=== PATIENT | female | born 1945 | race Caucasian/White ===

== ENCOUNTER 2023-05-25 13:15 | Emergency (ER) | payer OTHER, SELFPAY ==
--- NOTE | ~2023-05-25 | XR_ITS ---
EXAM: XR finger 2nd LT min 2V DATE: 05/25/2023 14:28 HISTORY: INJURY YESTERDAY, BRUISING AND PAIN THROUGHOUT 2ND DIGIT . COMPARISON: None available. FINDINGS: Decreased mineralization. Transversely oriented, nondisplaced fracture of the corner of th e proximal and medial aspect of the left second middle phalange. No lytic or blastic lesion. Mild sca ttered degenerative changes. No erosion or periosteal change. Soft tissues within normal limits. IMPRESSION: Nondisplaced, small avulsion type fracture of the proximal and medial aspect of the left second middle phalange. Reviewed, dictated and finalized at location K. IMPRESSION: Nondisplaced, small avulsion type fracture of the proximal and medi al aspect of the left second middle phalange.
[2023-05-25 13:15] VITALS: BP 140/99; PULSE 98; RESP 18; TEMP 37.4; O2SAT 96
[2023-05-25] MEDS: TETANUS,DIPHTHERIA,AC PERTUSSIS ADULT 0.5 ML (ADACEL) IM (14:24)
--- NOTE | 2023-05-25 14:58 | ED.GENADULT ---
HPI - General Adult General Chief complaint: Extremity Injury, Upper Stated complaint: left hand injury Time Seen by Provider: 05/25/23 13:33 Source: patient and family Mode of arrival: ambulatory Limitations: no limitations History of Present Illness HPI narrative: Patient is a 77-year-old female who was in the emergency room for a left finger injury after the cat pushed a heavy object off the shelf onto her finger. Patient sustained a left finger index finger mid finger small puncture and bruising of the finger. MD complaint: PRODUCTION LINE OPERATOR Onset (ago): minute(s) (30) Location: upper extremity Radiation: non-radiation Severity: mild Severity scale (1-10): 3 Quality: sharp Pain Consistency: constant Relieving factors: none Exacerbating factors: none Associated symptoms: denies other symptoms Treatments prior to arrival: none Related Data Allergies Allergy/AdvReac Type Severity Reaction Status Date / Time No Known Allergies Allergy Verified 05/25/23 13:27 Review of Systems Review of Systems: All systems reviewed & are unremarkable except as noted in HPI and below Constitutional: Constitutional: Reports no additional constitutional complaints Eyes: Eyes: Reports no additional eye complaints ENT: Reports system reviewed and no additional complaints, except as documented Cardiovascular: Cardiovascular: Reports no additional cardiovascular complaints Respiratory: Respiratory: Reports no additional respiratory complaints Gastrointestinal: Gastrointestinal: Reports no additional gastrointestinal complaints Genitourinary: Genitourinary: Reports no additional female genitourinary complaints Musculoskeletal: Musculoskeletal: Reports no additional musculoskeletal complaints Integumentary/Breasts: Skin/Breast: Reports system reviewed and no additional complaints, except as docu Neurologic: Reports system reviewed and no additional complaints, except as documented Psychiatric: Psychiatric: Reports no additional psychiatric complaints Endocrine: Endocrine: Reports no additional endocrine complaints Hematologic/Lymphatic: Hematologic/Lymphatic: Reports no additional hematologic/lymphatic complaints Allergic/Immunologic: Allergic/Immunologic: Reports no additional allergic/immunologic complaints Exam Const: General: healthy appearing and no acute distress Nutritional Appearance: well nourished Orientation/consciousness: patient oriented x3 Limitations: no limitations HENMT: Head: normal to inspection Eyes: Conjunctivae: conjunctivae normal Pupils: Equal, round and reactive pupils present Neck: Neck: normal visual inspection Chest: Chest palpation & inspection: normal inspection of the chest Resp: Effort & Inspection: normal respiratory effort Cardio: Rate: regular rate Rhythm: regular rhythm Heart sounds: no murmurs GI: Inspection: non-distended GI Palp: Yes Soft to palpation, No Tenderness to palpation present (GI) and No Guarding due to palpation present (GI) : General: Yes bladder normal to palpation Back/Spine/Pelvis: Back: no CVA tenderness Skin: General skin exam: normal color Rashes: no rashes Wounds: no wounds Neuro: General: patient oriented x3 Cranial nerves: Yes Nystagmus not present Speech: normal speech Extrem: General: normal to inspection Psych: Mental Status: mental status grossly normal Course Vital Signs Vital signs: Vital Signs Temperature 37.4 C 05/25/23 13:15 Pulse Rate 98 05/25/23 13:15 Respiratory Rate 18 05/25/23 13:15 Blood Pressure 140/99 H 05/25/23 13:15 Pulse Oximetry 96 05/25/23 13:15 Oxygen Delivery Room Air 05/25/23 13:15 Temperature 37.4 C 05/25/23 13:15 Pulse Rate 98 05/25/23 13:15 Respiratory Rate 18 05/25/23 13:15 Blood Pressure 140/99 H 05/25/23 13:15 Pulse Oximetry 96 05/25/23 13:15 Oxygen Delivery Room Air 05/25/23 13:15 Medical Decision Making Vital Signs Vital Signs: Vital Signs Temperatur
[2023-05-25 15:05] VITALS: BP 141/74; PULSE 79; RESP 18; TEMP 36.5; O2SAT 97
== END 2023-05-25 15:08 | disposition home or self-care (01) ==
PROVIDERS: Emergency Provider Emergency Medicine; PCP Physician Assistant
DX: S62.651A Nondisplaced fracture of middle phalanx of left index finger, initial encounter for closed fracture (principal); Z23 Encounter for immunization; W20.8XXA Other cause of strike by thrown, projected or falling object, initial encounter
CPT/HCPCS: 29130; 73140; 90471; 90715; 99284

== ENCOUNTER 2023-11-23 19:33 | Emergency (ER) | payer OTHER, SELFPAY ==
--- NOTE | ~2023-11-23 | XR_ITS ---
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 RESULT: Lines, tubes, and devices: None. Lungs and pleura: 1 times crowding. Right hemidiaphragm elevation. Linear bibasilar atelectasis/scar . Cardiomediastinal silhouette: Unremarkable. Other: No acute osseous or upper abdominal finding. IMPRESSION: No acute cardiopulmonary process. Reviewed, dictated and finalized at location K. TABLE OPERATOR
[2023-11-23 19:33] VITALS: BP 144/87; PULSE 98; RESP 18; TEMP 36.8; O2SAT 97
[2023-11-23] MEDS: predniSONE 40 MG, predniSONE 10 MG 50 MG PO (19:51)
[2023-11-23] MEDS: AZITHROMYCIN 250 MG TABLET 500 MG PO (19:51)
[2023-11-23 19:55] LABS: Basophils Absolute Auto 0.05 K/mm3 (0.00-0.10); Basophils Percent Auto 0.8 % (0.0-1.0); Eosinophils Absolute Auto 0.13 K/mm3 (0.02-0.50); Hemoglobin 14.6 g/dL (11.7-13.8); Immature Granulocyte Absolute 0.03 K/mm3 (0.00-0.00); Immature Granulocyte Percent A 0.5 % (0.0-0.0); Lymphocytes Absolute Auto 2.35 K/mm3 (1.10-4.50); Lymphocytes Percent Auto 36.7 % (18.0-42.0); Mean Corpuscular HGB Conc 35.6 g/dL (32.0-36.0); Mean Corpuscular Hemoglobin 31.7 pg (27.0-31.0); Mean Corpuscular Volume 88.9 fL (78.0-102.0); Monocytes Absolute Auto 0.44 K/mm3 (0.10-0.90); Monocytes Percent Auto 6.9 % (2.0-11.0); Neutrophils Absolute Auto 3.4 K/mm3 (1.7-7.2); Neutrophils Percent Auto 53.1 % (50.0-70.0); Platelet Count Result 192 K/mm3 (150-420); Red Blood Count 4.61 M/mm3 (4.20-5.40); Red Cell Distribution Width 12.4 % (11.6-14.4); White Blood Count 6.4 K/mm3 (4.8-10.8)
[2023-11-23] MEDS: IPRATROPIUM 0.5 MG/ALBUTEROL SULFATE 2.5 MG AMPUL.NEB 3 ML INHALATION (19:59)
[2023-11-23 20:02] VITALS: PULSE 94; RESP 18; O2SAT 95
[2023-11-23 20:06] VITALS: PULSE 88; RESP 20; O2SAT 94
[2023-11-23 20:12] LABS: Alanine Aminotransferase 23 U/L (14-59); Albumin Level 3.7 g/dL (3.4-5.0); Alkaline Phosphatase 94 U/L (46-116); Anion Gap 10 mmol/L (8-16); Aspartate Amino Transferase 13 U/L (15-37); Bilirubin,Total 0.8 mg/dL (0.00-1.00); Blood Urea Nitrogen 19 mg/dL (7-18); Calcium 10.3 mg/dL (8.5-10.1); Carbon Dioxide 26 mmol/L (21-32); Chloride 100 mmol/L (98-108); Estimated CRCL calculation 44 ml/min; Estimated Glomerular Filt Rate 51; Glucose 260 mg/dL (70-99); Osmolality Calculated 293 mOsm/kg (285-295); Potassium 3.9 mmol/L (3.5-5.1); Sodium 136 mmol/L (136-145); Total Protein 7.3 g/dL (6.4-8.2)
--- NOTE | 2023-11-23 20:19 | ED.GENADULT ---
HPI - General Adult General Chief complaint: Upper Respiratory Infection Stated complaint: cough Time Seen by Provider: 11/23/23 19:37 History of Present Illness HPI narrative: Tracy is a 78F witha PMH of second hand tobacco exposure and diabetes presented to the ED with 2 days of frequent cough. There is no chest pain, fevers, dyspnea, N/V or diarrhea. She has not taken any OTC meds for this. Related Data Allergies Allergy/AdvReac Type Severity Reaction Status Date / Time No Known Allergies Allergy Verified 11/23/23 19:36 Review of Systems Review of Systems: All systems reviewed & are unremarkable except as noted in HPI and below Exam Const: General: cooperative, healthy appearing, comfortable, no acute distress, well developed, alert, awake and Physically active Orientation/consciousness: oriented to person, oriented to place and oriented to time HENMT: Head: normal to inspection, normocephalic and atraumatic Ears: hearing grossly normal bilaterally and external ears normal Face/Nose/Sinus: Normal external nose present Eyes: General: appearance normal, both eyes and all related structures Periorbital: periorbital findings normal Sclera: sclerae normal Pupils: Equal, round and reactive pupils present Neck: Neck: normal visual inspection Chest: Chest palpation & inspection: normal inspection of the chest Resp: Effort & Inspection: normal respiratory effort, able to speak in complete sentences and no respiratory distress Other: Scant wheezing in all lung cardenas but good air movement. Frequent cough on exam. Cardio: Jugular venous distension: no JVD Rate: regular rate Rhythm: regular rhythm GI: Inspection: normal to inspection GI Palp: Yes Soft to palpation Auscultation: normal bowel sounds Skin: General skin exam: normal color and no rashes or lesions noted Neuro: General: oriented to person, oriented to place and oriented to time Cranial nerves: Yes Equal, round and reactive pupils present Extrem: General: normal to inspection Course Course Emergency Course: Ordered CXR, labs and a breathing treatment EXAMINATION:? XR chest 1V portable Exam Date/Time:? 11/23/2023 20:05 [employer] SCOUT HISTORY: cough ? Comparison:? None. RESULT: Lines, tubes, and devices:? None. Lungs and pleura:? 1 times crowding. Right hemidiaphragm elevation. Linear bibasilar atelectasis/scar. Cardiomediastinal silhouette:? Unremarkable. Other:? No acute osseous or upper abdominal finding. IMPRESSION: No acute cardiopulmonary process. Labs were largely unremarkable other than an elevated glucose and slightly elevated Cr. Given her wheezing and tobacco exposure I am concerned for COPD with an exacerbation Vital Signs Vital signs: Vital Signs Temperature 98.3 F 11/23/23 19:33 Pulse Rate 98 11/23/23 19:33 Respiratory Rate 18 11/23/23 19:33 Blood Pressure 144/87 H 11/23/23 19:33 Pulse Oximetry 97 11/23/23 19:33 Oxygen Delivery Room Air 11/23/23 19:33 Temperature 98.6 F 11/23/23 21:21 Pulse Rate 86 11/23/23 21:21 Respiratory Rate 18 11/23/23 21:21 Blood Pressure 123/78 11/23/23 21:21 Pulse Oximetry 96 11/23/23 21:21 Oxygen Delivery Room Air 11/23/23 21:21 Medical Decision Making Vital Signs Vital Signs: Vital Signs Temperature 98.3 F 11/23/23 19:33 Pulse Rate 98 11/23/23 19:33 Respiratory Rate 18 11/23/23 19:33 Blood Pressure 144/87 H 11/23/23 19:33 Pulse Oximetry 97 11/23/23 19:33 Oxygen Delivery Room Air 11/23/23 19:33 Temperature 98.6 F 11/23/23 21:21 Pulse Rate 86 11/23/23 21:21 Respiratory Rate 18 11/23/23 21:21 Blood Pressure 123/78 11/23/23 21:21 Pulse Oximetry 96 11/23/23 21:21 Oxygen Delivery Room Air 11/23/23 21:21 Lab Data 11/23/23 19:42 11/23/23 19:42 Labs: Lab Results 11/23/23 11/23/23 Range/Units 19:42 20:21 WBC 6.4 (4.8-10.8) K/mm3 RBC 4.61 (4.20-5.40) M/mm3
--- NOTE | 2023-11-23 20:59 | PC.NURSE ---
PT IS SITTING ON STRETCHER IN EXAM ROOM. PT DENIES ANY NEEDS OR COMPLAINTS. PT'S FAMILY IS IN WAITING AREA AND HAS BEEN UPDATED. NAD NOTED. WILL CONTINUE TO MONITOR. PT IS WAITING ON RESULTS AT THIS TIME.
[2023-11-23 21:21] VITALS: BP 123/78; PULSE 86; RESP 18; TEMP 37; O2SAT 96
[2023-11-23 21:26] LABS: SARS-CoV-2 RNA PCR Negative (Negative)
[2023-11-23 21:32] LABS: Influenza A QL RT-PCR Negative (Negative); Influenza B QL RT-PCR Negative (Negative); RSV RNA, RT-PCR Negative (Negative)
== END 2023-11-23 21:21 | disposition home or self-care (01) ==
PROVIDERS: Emergency Provider Family Medicine; PCP Physician Assistant
DX: J44.1 Chronic obstructive pulmonary disease with (acute) exacerbation (principal); Z20.822 Contact with and (suspected) exposure to COVID-19
CPT/HCPCS: 36415; 71045; 80053; 85025; 87637; 94640; 99283; A9270; J7512

== ENCOUNTER 2025-01-04 22:44 | Emergency (ER) | payer OTHER, SELFPAY ==
--- NOTE | ~2025-01-04 | XR_ITS ---
Portable chest x-ray Comparison: 11/23/2023 Clinical History: Cough Findings: Mild haziness at the left lung base. Right lung clear. Cardiomediastinal silhouette is st able. Bones and soft tissues are unremarkable. Impression: Left basilar atelectasis versus pneumonia. Correlate with. Reviewed, dictated and finalized at [facility]. Impression: Left basilar atelectasis versus pneumonia. Correlate with.
--- OUTSIDE RECORDS SUMMARY | 2025-01-04 22:46 | XMS_ITS | Encounter Summary ---
Author Organization [facility] Address [address] [place] [address] Phone Care Team Providers Care Chief Enterprise Architect Name Role Phone Ivan Sandra PAC Primary Care Provider [phone] Rachelle Butcher MD Unavailable Encounter Details Date Type Department Care Team (Late st Contact Info) Description 12/21/2024 Telephone [facility] [address] [place] [address] Ivan Sandra, PAC [address] [place] [address] Social History Tobacco Use Types Packs/Day Years Used Date Smoking Tobacco: Former Smokeless Tobacco: Never Alcohol Use Standard Drinks/Week Comments Never 0 (1 standard drink = 0.6 oz pur e alcohol) AUDIT-C Answer Date Recorded Q1: How often do you have a drink containing alc ohol? Never 10/19/2020 Average Number of Drinks Not on file 020 Frequency of Binge Drinking Not on file 09/28 Sexually Active Control Partners Comments Not Currently Comments No Sex and Gender Information Value Date Recorded Sex Assigned at Not on file Legal Sex Female 3:14 PM CDT Gender Identity Not on file Sexual Orientation Not on file documented as of this encounter Miscellaneous Notes * Telephone Encounter - RisaRonaldirving Woodruff - 12/21/2024 3:00 PM CST Patient calling about diapers that were supposed to be ordered and info faxed to [employer]. I didn't realize the office wasn't on of our offices we take calls for. So I called patient and her daughter back to give them the # to the [facility] without an answer. If patient of daughter Radha calls back, they need to call [facility] @ [phone] R NURSE documented in this encounter Plan of Treatment Upcoming Encounters Date Type Department Care Team (Late st Contact Info) Description 06/03/2025 1:00 PM CDT Office Visit [facility] - Endocrinology - [place] [address] [place] [address] Rachelle Butcher MD [address] [phone] documented as of this encounter Visit Diagnoses Not on filedocumented in this encounter Care Teams Chief Enterprise Architect Relationship Specialty Start Date End Date Ivan Sandra, [facility] [address] [place] [id number] PCP - General Physician Blood Tester 07/28/20 Rachelle Butcher MD [address] [id number] Consulting Physician Endocrinology 11/15/20 documented as of this encounter
--- OUTSIDE RECORDS SUMMARY | 2025-01-04 22:46 | XMS_ITS | Data Portability ---
Author [facility] [address] [place] [address] Care Team Providers Care Station Engineer Name Role Phone WEI SANDRA Primary Care Provider Assessment No assessment recorded. Plan of Treatment Reminders Order Date Submit Date Provider Last Modified By Organization Details Last Modified Time Details Appointments None recorded. Lab HbA1c (hemoglobi n A1c), blood 2024 025 MAEGAN In-Office Order, Internal Use Only DO Not Attach Compendium DO Not Attach Compendium, Do Not Delete/merge, [id number] 5 16:18:21 HbA1c (hemoglobi n A1c), blood 2023 024 jnanney In-Office Order, Internal Use Only DO Not Attach Compendium DO Not Attach Compendium, Do Not Delete/merge, [id number] 4 16:30:28 HbA1c (hemoglobi n A1c), blood 2023 024 jnanney In-Office Order, Internal Use Only DO Not Attach Compendium DO Not Attach Compendium, Do Not Delete/merge, [id number] 4 12:37:47 CBC 2023 024 MAEGAN [facility], [address], [address], [place], [address], 4 09:14:15 CMP, serum or plasma 2023 024 MAEGAN [facility], [address], [address], [place], [address], 4 09:14:14 lipid panel, serum [address] [facility], [address], [address], [place], [address], 09:14:13 Referral None recorded. Procedures None recorded. Surgeries None recorded. Imaging None recorded. Medication Orders Namenda 10 mg tablet 2023 [facility], [place], [address], 15:11:48 Januvia 100 mg tablet 2023 [facility] [place], [address], [place], [address], 15:11:40 glipizide 5 mg tablet 2023 [facility] [place], [address], [place], [address], 15:11:45 Patient TargetsNo targets recorded. Patient Instructions Encounter Date Encounter Id Patient Instructions Last Modified By Organization Details Last Modified Time 01/25/2023 [id number] A healthy lifestyle: care instructions roseanney Not available 01/25/2023 11:51:30 type 2 diabetes: care instructions jnanney Not available 01/25/2023 11:51:30 discussed carb identification jnanney Not available 01/25/2023 11:53:27 01/06/2024 [id number] When You Want to Lose Weight: Care Instructions jnanney Not available 01/06/2024 12:37:45 type 2 diabetes: care instructions jnanney Not available 01/06/2024 12:37:44 04/27/2024 [id number] A healthy lifestyle: care instructions jnanney Not available 04/27/2024 16:32:27 A healthy lifestyle: care instructions jnanney Not available 04/27/2024 16:32:27 type 2 diabetes: care instructions jnanney Not available 04/27/2024 16:32:27 10/12/2024 [id number] type 2 diabetes: care instructions jnanney Not available 10/12/2024 16:30:28 11/10/2024 [id number] A healthy lifestyle: care instructions jnanney Not available 11/10/2024 16:11:11 type 2 diabetes: care instructions jnanney Not available 11/10/2024 16:11:11 Reason for Referral None Reported. Results Created Date Observation Date Name Description Value Unit Range Abnormal Flag Note LastModifiedBy Organization Detail LastModifiedTime 01/17/20 23 01/18/2023 SPECI MEN STATU S REPOR T specimen status report TNP Test not perfo rmed. Test cance lled by [facility] after order was submi tted to [facility]. TEST: [id number] 2 CBC, Plate let, No Diffe renti al Cance led per origi nal order . Test marke d out. 2022. Not Available [facility] ([facility]) [address] [place], [address], 01/19/2023 06:17:01 01/17/20 23 01/18/[address] PROBL EM request problem TNP Speci men quant ity insuf ficie nt for verif icati on by repea t rodrigo sis. TEST: [id number] 8 Sodiu m Panel : [phone] [phone] 0 Potas sium Panel : [id number] [phone] [id number] 6 Chlor jacob Panel : [id number] 0 [phone] 6 Calci um Panel : [phone] 7 Alkal ine Phosp hatas e Panel : [phone] 0 Not Available [facility] ([facility]) [address] [place], [address], 01/19/2023 06:17:01 01/17/20 23 01/18/2023 LIPID PANEL cholesterol, total 234 mg/dL 100-19 9 above high normal Not Available [facility] ([facility]) [address] [place], [address], 01/19/2023 06:17:02 01/17/20 23 01/18/2023 LIPID PANEL triglyceride s 382 mg/dL 0-149 above high normal Not Available [facility] ([facility]) [address] [place], [address], 01/19/2023 06:17:02 01/17/20 23 01/18/2023 LIPID PANEL HDL cholesterol 34 mg/dL >39 below low normal Not Available [facility] ([facility]) [address] [place], [address], 01/19/2023 06:17:02 01/17/20 23 01/18/2023 LIPID PANEL VLDL cholesterol prem 69 mg/dL 5-40 above high normal Not Available [facility] ([facility]) [address] [place], [address], 01/19/2023 06:17:02 01/17/20 23 01/18/2023 LIPID PANEL LDL chol calc ([facility]) 131 mg/dL 0-99 above high normal Not Available [facility] ([facility]) [address] [place], [address], 01/19/2023 06:17:02 01/17/20 23 01/18/2023 COMP. METAB OLIC PANEL (14) glucose 306 mg/dL 70-99 above high normal Not Available [facility] ([facility]) [address] [place], [address], 01/19/2023 06:17:02 01/17/20 23 01/18/2023 COMP. METAB OLIC PANEL (14) BUN 17 mg/dL 8-27 Not Available [facility] ([facility]) [address] [place], [address], 01/19/2023 06:17:02 01/17/20 23 01/18/2023 COMP. METAB OLIC PANEL (14) creatinine 1.03 mg/dL 0.57-1 .00 above high normal Not Available [facility] ([facility]) [address] [facility], [place], [address], 01/19/2023 06:17:02 01/17/20 23 01/18/2023 COMP. METAB OLIC PANEL (14) eGFR 56 mL/mi n/1.7 3 >59 below low normal Not Available [facility] ([facility]) [address] [facility], [place], [address], 01/19/2023 06:17:02 01/17/20 23 01/18/2023 COMP. METAB OLIC PANEL (14) BUN/creatini ne ratio 17 - Not Available [facility] ([facility]) [address] [facility], [place], [address], 01/19/2023 06:17:02 01/17/20 23 01/18/2023 COMP. METAB OLIC PANEL (14) sodium - mmol/ L Speci men quant ity insuf ficie nt for verif icati on by repea t rodrigo sis. Not Available [facility] ([facility]) [address] [facility], [place], [address], 01/19/2023 06:17:02 01/17/20 23 01/18/2023 COMP. METAB OLIC PANEL (14) potassium - mmol/ L Speci men quant ity insuf ficie nt for verif icati on by repea t rodrigo sis. Not Available [facility] ([facility]) [address] [facility], [place], [address], 01/19/2023 06:17:02 01/17/20 23 01/18/2023 COMP. METAB OLIC PANEL (14) chloride - mmol/ L Speci men quant ity insuf ficie nt for verif icati on by repea t rodrigo sis. Not Available [facility] ([facility]) [address] [facility], [place], [address], 01/19/2023 06:17:02 01/17/20 23 01/18/2023 COMP. METAB OLIC PANEL (14) carbon dioxide, total - mmol/ L Test not perfo rmed. Due to a lack of repro ducib ility with this patie nt sampl e, a valid resul t could not be obtai lorena. Not Available [facility] ([facility]) [address] [facility], [place], [address], 01/19/2023 06:17:02 01/17/20 23 01/18/2023 COMP. METAB OLIC PANEL (14) calcium - mg/dL Speci men quant ity insuf ficie nt for verif icati on by repea t rodrigo sis. Not Available [facility] ([facility]) [address] [place], [address], 01/19/2023 06:17:02 01/17/20 23 01/18/2023 COMP. METAB OLIC PANEL (14) protein, total 7.3 g/dL 6.0-8. 5 Not Available [facility] ([facility]) [address] [place], [address], 01/19/2023 06:17:02 01/17/20 23 01/18/2023 COMP. METAB OLIC PANEL (14) albumin 4.7 g/dL 3.7-4. 7 Not Available [facility] ([facility]) [address] [place], [address], 01/19/2023 06:17:02 01/17/20 23 01/18/2023 COMP. METAB OLIC PANEL (14) globulin, total 2.6 g/dL 1.5-4. 5 Not Available [facility] ([facility]) [address] [place], [address], 01/19/2023 06:17:02 01/17/20 23 01/18/2023 COMP. METAB OLIC PANEL (14) A/G ratio 1.8 1.2-2. 2 Not Available [facility] ([facility]) [address] [place], [address], 01/19/2023 06:17:02 01/17/20 23 01/18/2023 COMP. METAB OLIC PANEL (14) bilirubin, total 0.6 mg/dL 0.0-1. 2 Not Available [facility] ([facility]) [address] [place], [address], 01/19/2023 06:17:02 01/17/20 23 01/18/2023 COMP. METAB OLIC PANEL (14) alkaline phosphatase - IU/L Speci men quant ity insuf ficie nt for verif icati on by repea t rodrigo sis. Not Available [facility] ([facility]) [address] [place], [address], 01/19/2023 06:17:02 01/17/20 23 01/18/2023 COMP. METAB OLIC PANEL (14) AST (SGOT) 17 IU/L 0-40 Not Available [facility] ([facility]) [address] [place], [address], 01/19/2023 06:17:02 01/17/20 23 01/18/2023 COMP. METAB OLIC PANEL (14) ALT (SGPT) 14 IU/L 0-32 Not Available [facility] ([facility]) [address] [place], [address], 01/19/2023 06:17:02 01/17/20 23 01/18/2023 LITHO LINK CKD PROGR AM interpretati on Note Medic al Direc tor's Note: Speci men Statu s Repor t: TNP. Test not perfo rmed. Test cance lled by [facility] provi holley after order was submi tted to [facility]. TEST: [id number] 2 CBC, Plate let, No Diffe renti al Cance led per origi nal order . Test marke d out. 2022. Medic al Direc tor's Note: Reque st Probl em: TNP. Speci men quant ity insuf ficie nt for verif icati on by repea t rodrigo sis. TEST: [id number] 8 Sodiu m Panel : [phone] [phone] 0 Potas sium Panel : [phone] [phone] 6 Chlor jacob Panel : [phone] 0 [phone] 6 Calci um Panel : [phone] 7 Alkal ine Phosp hatas e Panel : [id number] 0 Suppl ement al repor t is avail able. Not Available [facility] ([facility]) [address] [facility], [place], [address], 01/19/2023 06:17:03 01/17/20 23 01/18/2023 LITHO LINK CKD PROGR AM pdf . Not Available [facility] ([facility]) [address] [facility], [place], [address], 01/19/2023 06:17:03 01/17/20 23 01/18/2023 CARDI OVASC ULAR REPOR T interpretati on Note Suppl ement al repor t is avail able. Not Available [facility] ([facility]) [address] [facility], [place], [address], 01/19/2023 06:17:04 01/17/20 23 01/18/2023 CARDI OVASC ULAR REPOR T pdf Not applic able Not Available [facility] ([facility]) [address] [facility], [place], [address], 01/19/2023 06:17:04 01/17/20 23 01/16/2023 HbA1c (hemo globi n A1c), blood HbA1c 7.6 Not Available In-Office Order Internal Use Only DO Not Attach Compendium DO Not Attach Compendium, Do Not Delete/merge, [id number] 01/16/2023 14:42:55 01/06/20 24 01/07/2024 LIPID PANEL cholesterol, total 176 mg/dL 100-19 9 Not Available [facility] [address] [place], [address], 01/07/2024 09:14:13 01/06/20 24 01/07/2024 LIPID PANEL triglyceride s 144 mg/dL 0-149 Not Available [address], [address], 01/07/2024 09:14:13 01/06/20 24 01/07/2024 LIPID PANEL HDL cholesterol 39 mg/dL >39 below low normal Not Available [address], [address], 01/07/2024 09:14:13 01/06/20 24 01/07/2024 LIPID PANEL VLDL cholesterol prem 26 mg/dL 5-40 Not Available [address], [address], 01/07/2024 09:14:13 01/06/2001/07/2024 LIPID PANEL LDL chol calc ([facility]) 111 mg/dL 0-99 above high normal Not Available [address], [address], 01/07/2024 09:14:13 01/06/20 24 01/07/2024 COMP. METAB OLIC PANEL (14) glucose 289 mg/dL 70-99 above high normal Not Available [address], [address], 01/07/2024 09:14:14 01/06/20 24 01/07/2024 COMP. METAB OLIC PANEL (14) BUN 17 mg/dL 8-27 Not Available [address], [address], 01/07/2024 09:14:14 01/06/2001/07/2024 COMP. METAB OLIC PANEL (14) creatinine 0.95 mg/dL 0.57-1 .00 Not Available [address], [address], 01/07/2024 09:14:14 01/06/20 24 01/07/2024 COMP. METAB OLIC PANEL (14) eGFR 62 mL/mi n/1.7 3 >59 Not Available [address], [address], 01/07/2024 09:14:14 01/06/20 24 01/07/2024 COMP. METAB OLIC PANEL (14) BUN/creatini ne ratio 18 12-28 Not Available [address], [address], 01/07/2024 09:14:14 01/06/20 24 01/07/2024 COMP. METAB OLIC PANEL (14) sodium 136 mmol/ L 134-14 4 Not Available [address], [address], 01/07/2024 09:14:14 01/06/20 24 01/07/2024 COMP. METAB OLIC PANEL (14) potassium 4.8 mmol/ L 3.5-5. 2 Not Available [address], [address], 01/07/2024 09:14:14 01/06/20 24 01/07/2024 COMP. METAB OLIC PANEL (14) chloride 101 mmol/ L 96-106 Not Available [address], [address], 01/07/2024 09:14:14 01/06/20 24 01/07/2024 COMP. METAB OLIC PANEL (14) carbon dioxide, total 21 mmol/ L 20-29 Not Available [address], [address], 01/07/2024 09:14:14 01/06/20 24 01/07/2024 COMP. METAB OLIC PANEL (14) calcium 11.6 mg/dL 8.7-10 .3 above high normal Not Available [address], [address], 01/07/2024 09:14:14 01/06/20 24 01/07/2024 COMP. METAB OLIC PANEL (14) protein, total 6.9 g/dL 6.0-8. 5 Not Available [address], [address], 01/07/2024 09:14:14 01/06/2001/07/2024 COMP. METAB OLIC PANEL (14) albumin 4.3 g/dL 3.8-4. 8 Not Available [address], [address], 01/07/2024 09:14:14 01/06/20 24 01/07/2024 COMP. METAB OLIC PANEL (14) globulin, total 2.6 g/dL 1.5-4. 5 Not Available [address], [address], 01/07/2024 09:14:14 01/06/2001/07/2024 COMP. METAB OLIC PANEL (14) A/G ratio 1.7 1.2-2. 2 Not Available [address], [address], 01/07/2024 09:14:14 01/06/2001/07/2024 COMP. METAB OLIC PANEL (14) bilirubin, total 1.0 mg/dL 0.0-1. 2 Not Available [address], [address], 01/07/2024 09:14:14 01/06/20 24 01/07/2024 COMP. METAB OLIC PANEL (14) alkaline phosphatase 104 IU/L 44-121 Not Available [address], [address], 01/07/2024 09:14:14 01/06/20 24 01/07/2024 COMP. METAB OLIC PANEL (14) AST (SGOT) 18 IU/L 0-40 Not Available [address], [address], 01/07/2024 09:14:14 01/06/20 24 01/07/2024 COMP. METAB OLIC PANEL (14) ALT (SGPT) 21 IU/L 0-32 Not Available [address], [address], 01/07/2024 09:14:14 01/06/2001/07/2024 CARDI OVASC ULAR REPOR T interpretati on Note Suppl ement al repor t is avail able. Not Available [address], [address], 01/07/2024 09:14:15 01/06/20 24 01/07/2024 CARDI OVASC ULAR REPOR T pdf . Not Available [address], [address], 01/07/2024 09:14:15 01/06/20 24 01/07/2024 CBC, PLATE LET, NO DIFFE RENTI AL WBC 5.1 x10e3 /uL 3.4-10 .8 Not Available [address], [address], 01/07/2024 09:14:15 01/06/20 24 01/07/2024 CBC, PLATE LET, NO DIFFE RENTI AL RBC 4.78 x10e6 /uL 3.77-5 .28 Not Available [address], [address], 01/07/2024 09:14:15 01/06/20 24 01/07/2024 CBC, PLATE LET, NO DIFFE RENTI AL hemoglobin 15.2 g/dL .1-1 5.9 Not Available [address], [address], 01/07/2024 09:14:15 01/06/2001/07/2024 CBC, PLATE LET, NO DIFFE RENTI AL hematocrit 45.1 % 34.0-4 6.6 Not Available [address], [address], 01/07/2024 09:14:15 01/06/2001/07/2024 CBC, PLATE LET, NO DIFFE RENTI AL MCV 94 fL 79-97 Not Available [address], [address], 01/07/2024 09:14:15 01/06/2001/07/2024 CBC, PLATE LET, NO DIFFE RENTI AL MCH 31.8 pg 26.6-3 3.0 Not Available [address], [address], 01/07/2024 09:14:15 01/06/2001/07/2024 CBC, PLATE LET, NO DIFFE RENTI AL MCHC 33.7 g/dL 31.5-3 5.7 Not Available [address], [address], 01/07/2024 09:14:15 01/06/2001/07/2024 CBC, PLATE LET, NO DIFFE RENTI AL RDW 12.7 % 11.7-1 5.4 Not Available [address], [address], 01/07/2024 09:14:15 01/06/2001/07/2024 CBC, PLATE LET, NO DIFFE RENTI AL platelets 178 x10e3 /uL 150-45 0 Not Available [address] [place], [address], 01/07/2024 09:14:15 01/06/20 24 01/06/2024 HbA1c (hemo globi n A1c), blood HbA1c 8.6 Not Available In-Office Order Internal Use Only DO Not Attach Compendium DO Not Attach Compendium, Do Not Delete/merge, [id number] 01/06/2024 09:19:45 10/12/20 24 10/13/2024 LIPID PANEL cholesterol, total 245 mg/dL 100-19 9 above high normal Not Available [address], [address], 10/13/2024 10:16:41 10/12/20 24 10/13/2024 LIPID PANEL triglyceride s 258 mg/dL 0-149 above high normal Not Available [address], [address], 10/13/2024 10:16:41 10/12/20 24 10/13/2024 LIPID PANEL HDL cholesterol 37 mg/dL >39 below low normal Not Available [address], [address], 10/13/2024 10:16:41 10/12/20 24 10/13/2024 LIPID PANEL VLDL cholesterol prem 48 mg/dL 5-40 above high normal Not Available [address], [address], 10/13/2024 10:16:41 10/12/20 24 10/13/2024 LIPID PANEL LDL chol calc ([facility]) 160 mg/dL 0-99 above high normal Not Available [address], [address], 10/13/2024 10:16:41 10/12/20 24 10/13/2024 COMP. METAB OLIC PANEL (14) glucose 217 mg/dL 70-99 above high normal Not Available [address] [place], [address], 10/13/2024 10:16:42 10/12/20 24 10/13/2024 COMP. METAB OLIC PANEL (14) BUN 20 mg/dL 8-27 Not Available [address], [address], 10/13/2024 10:16:42 10/12/20 24 10/13/2024 COMP. METAB OLIC PANEL (14) creatinine 0.91 mg/dL 0.57-1 .00 Not Available [address], [address], 10/13/2024 10:16:42 10/12/20 24 10/13/2024 COMP. METAB OLIC PANEL (14) eGFR 65 mL/mi n/1.7 3 >59 Not Available [address], [address], 10/13/2024 10:16:42 10/12/20 24 10/13/2024 COMP. METAB OLIC PANEL (14) BUN/creatini ne ratio 22 12-28 Not Available [address], [address], 10/13/2024 10:16:42 10/12/20 24 10/13/2024 COMP. METAB OLIC PANEL (14) sodium 138 mmol/ L 134-14 4 Not Available [address], [address], 10/13/2024 10:16:42 10/12/20 24 10/13/2024 COMP. METAB OLIC PANEL (14) potassium 4.4 mmol/ L 3.5-5. 2 Not Available [address], [address], 10/13/2024 10:16:42 10/12/20 24 10/13/2024 COMP. METAB OLIC PANEL (14) chloride 105 mmol/ L 96-106 Not Available [address], [address], 10/13/2024 10:16:42 10/12/20 24 10/13/2024 COMP. METAB OLIC PANEL (14) carbon dioxide, total 22 mmol/ L 20-29 Not Available [address], [address], 10/13/2024 10:16:42 10/12/20 24 10/13/2024 COMP. METAB OLIC PANEL (14) calcium 11.6 mg/dL 8.7-10 .3 above high normal Not Available [address], [address], 10/13/2024 10:16:42 10/12/20 24 10/13/2024 COMP. METAB OLIC PANEL (14) protein, total 6.7 g/dL 6.0-8. 5 Not Available [address], [address], 10/13/2024 10:16:42 10/12/20 24 10/13/2024 COMP. METAB OLIC PANEL (14) albumin 4.4 g/dL 3.8-4. 8 Not Available [address], [address], 10/13/2024 10:16:42 10/12/20 24 10/13/2024 COMP. METAB OLIC PANEL (14) globulin, total 2.3 g/dL 1.5-4. 5 Not Available [address], [address], 10/13/2024 10:16:42 10/12/20 24 10/13/2024 COMP. METAB OLIC PANEL (14) bilirubin, total 0.7 mg/dL 0.0-1. 2 Not Available [address], [address], 10/13/2024 10:16:42 10/12/20 24 10/13/2024 COMP. METAB OLIC PANEL (14) alkaline phosphatase 103 IU/L 44-121 Not Available [address], [address], 10/13/2024 10:16:42 10/12/20 24 10/13/2024 COMP. METAB OLIC PANEL (14) AST (SGOT) 13 IU/L 0-40 Not Available [address], [address], 10/13/2024 10:16:42 10/12/20 24 10/13/2024 COMP. METAB OLIC PANEL (14) ALT (SGPT) 16 IU/L 0-32 Not Available [address], [address], 10/13/2024 10:16:42 10/12/20 24 10/13/2024 CARDI OVASC ULAR REPOR T interpretati on Note Suppl emradha al repor t is avail able. Not Available [address], [address], 10/13/2024 10:16:44 10/12/20 24 10/13/2024 CARDI OVASC ULAR REPOR T pdf . Not Available [address], [address], 10/13/2024 10:16:44 10/12/20 24 10/13/2024 CBC, PLATE LET, NO DIFFE RENTI AL WBC 5.4 x10e3 /uL 3.4-10 .8 Not Available [address], [address], 10/13/2024 10:16:45 10/12/20 24 10/13/2024 CBC, PLATE LET, NO DIFFE RENTI AL RBC 4.49 x10e6 /uL 3.77-5 .28 Not Available [address], [address], 10/13/2024 10:16:45 10/12/20 24 10/13/2024 CBC, PLATE LET, NO DIFFE RENTI AL hemoglobin 14.4 g/dL 11.1-1 5.9 Not Available [address], [address], 10/13/2024 10:16:45 10/12/20 24 10/13/2024 CBC, PLATE LET, NO DIFFE RENTI AL hematocrit 43.3 % 34.0-4 6.6 Not Available [address], [address], 10/13/2024 10:16:45 10/12/20 24 10/13/2024 CBC, PLATE LET, NO DIFFE RENTI AL MCV 96 fL 79-97 Not Available [address], [address], 10/13/2024 10:16:45 10/12/20 24 10/13/2024 CBC, PLATE LET, NO DIFFE RENTI AL MCH 32.1 pg 26.6-3 3.0 Not Available [address], [address], 10/13/2024 10:16:45 10/12/20 24 10/13/2024 CBC, PLATE LET, NO DIFFE RENTI AL MCHC 33.3 g/dL 31.5-3 5.7 Not Available [address], [address], 10/13/2024 10:16:45 10/12/20 24 10/13/2024 CBC, PLATE LET, NO DIFFE RENTI AL RDW 12.1 % 11.7-1 5.4 Not Available [address], [address], 10/13/2024 10:16:45 10/12/20 24 10/13/2024 CBC, PLATE LET, NO DIFFE RENTI AL platelets 193 x10e3 /uL 150-45 0 Not Available [address], [address], 10/13/2024 10:16:45 10/12/20 24 10/12/2024 HbA1c (hemo globi n A1c), blood HbA1c 8.9 Not Available In-Office Order Internal Use Only DO Not Attach Compendium DO Not Attach Compendium, Do Not Delete/merge, [id number] 10/12/2024 14:52:16 11/10/19 25 11/10/2024 HbA1c (hemo globi n A1c), blood HbA1c 7.7 Not Available In-Office Order Internal Use Only DO Not Attach Compendium DO Not Attach Compendium, Do Not Delete/merge, [id number] 11/10/2024 16:11:25 12/03/19 25 12/03/2024 Hemog lobin A1c/H emogl obin. total in Blood hemoglobin A1C/hemoglob in.total in blood 7 % low: 4%high : 6% abnormal HGB-A 1C 7.0 (A) 4 - 6 % Not Available Not Available 12/21/2024 12:51:35 12/03/19 25 12/03/2024 Hemog lobin A1c/H emogl obin. total in Blood interpretati on and review of laboratory results Abnorm al Not Available Not Available 12:51:35 05/25/2005/25/2023 XR, finge r(s), 2 or more view No observ ation record ed. [facility] [address], [place], [address], 05/27/2023 09:08:42 11/23/19 24 11/23/2023 XR, chest No observ ation record ed. [facility] [address] [facility], [place], [address], 11/25/2023 09:08:17 Result Notes None recorded. Problems Name Problem SNOMED Code Status Onset Date Resolution Date Notes Provider Name and Address Organization Details Recorded Time Type 2 diabetes mellitus 75303867 Completed 201808/17/2021 Wei Sandra PA-C Attn: Accountin g,[address] [facility], [place], [address], [place] [facility] 1 15:13:57 Multiple complication s due to type 2 diabetes mellitus Active 2020 Wei Sandra PA-C Attn: Accountin g,[address] [facility], [place], [address], [place] [facility] 15:14:11 Unsteady when walking [id number] Active 2020 Wei Sandra PA-C Attn: Accountin g,[address] [facility], [place], [address], [place] [facility] 15:23:46 Hyperlipidem ia 22370446 Active Rebecca Stevens MA null, [place] - [facility] 1 14:09:02 Knee pain Active Rebecca Stevens MA null, [place] - [facility] 1 14:09:02 Problem Notes None recorded. Procedures Surgical History Date Name Laterality Status Provider Name and Address Organization Details Recorded Time 7 Joint Injection completed Liv Bill MD Attn: Accounting,[address] [facility], [place], [address], [place] [facility] 07/19/2017 20:03:51 Imaging Results Imaging Date Name Status LastModified by Organiz ation Details LastModified Time 05/25/2023 XR, finger(s), 2 or more view completed [facility] [address], [place], [address], 05/27/2023 09:08:42 11/23/2023 XR, chest completed [email or web address] [address] [facility], [place], [address], 11/25/2023 09:08:17 Procedure Notes None recorded. Medical Equipment None Reported. Allergies Allergen ID Allergen Name Allergen Category Reaction Reaction Severity Criticality Documentation Date Start Date Code Code System Note Provider Name and Address Organization Details Recorded Time 609300 No known allergy (situatio n) Not available Not available Not available Not available 08/17/2021 [id number] SNOMED Not Available Not Available Not Available No known drug allergies Medications Name Sig Start Date Stop Date Status Note LastModified by Organization Details LastModified Time metformin 500 mg tablet 08/19 completed Not Available Not Available Not Available atorvasta tin 10 mg tablet Take 1 tablet every day by oral route for 90 days. active Not Available Not Available No t Available azithromy mekhi 250 mg tablet TAKE 1 TABLET BY MOUTH EVERY DAY - START ON DAY 2 OF THERAPY 01/05 completed Not Available Not Available Not Available ofloxacin 0.3 % eye drops 10/12 completed Not Available Not Available Not Available hydrocodo ne 5 mg-acetam inophen 325 mg tablet 01/16 completed Not Available Not Available Not Available simvastat in 40 mg tablet Take 1 tablet(s ) every day by oral route for 90 days. 08/17 completed Not Available Not Available Not Available ketorolac 0.5 % eye drops 10/12 completed Not Available Not Available Not Available Kenalog 40 mg/mL suspensio n for injection in office - med provided 01/21 completed this patient did get a injectio n of kenalog, however the person who anuja it up did not chart it so I ordered this due to billing reasons. sweis,cm a Not Available Not Available Not Available prednisol one acetate 1 % eye drops,finesse pension 10/12 completed Not Available Not Available Not Available OneTouch Ultra Test strips active Not Available Not Available Not Available cephalexi n 500 mg capsule 500 mg twice a day by oral route. 08/05 completed Not Available Not Available Not Available simvastat in 20 mg tablet Take 1 tablet every day by oral route in the evening. 12/22 completed Not Available Not Available Not Available metformin 1,000 mg tablet Take 1 tablet by mouth twice daily in the morning and evening meals active Not Available Not Available No t Available prednison e 50 mg tablet TAKE 1 TABLET BY MOUTH EVERY DAY 01/05 completed Not Available Not Available Not Available albuterol sulfate HFA 90 mcg/actua tion aerosol inhaler INHALE 1 PUFF BY MOUTH 4 TIMES A DAY NEEDED active Not Available Not Available No t Available glipizide 5 mg tablet Take 1 tablet twice a day by oral route for 90 days. active Not Available Not Available No t Available Namenda 10 mg tablet Take 1 tablet(s ) twice a day by oral route for 30 days. 2024 active Not Available Not Available Not Avai lable omega-3 acid ethyl esters 1 gram capsule 08/19 completed Not Available Not Available Not Available Acidophil us active Not Available Not Available Not Available Januvia 100 mg tablet TAKE ONE TABLET BY MOUTH EVERY DAY active Not Available Not Available No t Available Steglatro 5 mg tablet Take 1 tablet every day by oral route for 90 days. 08/17 completed Not Available Not Available Not Available OneTouch Ultra2 Meter active Not Available Not Available Not Available OneTouch Delica Plus Lancet 33 gauge active Not Available Not Available Not Available Vitals Date Recorded Body height Body mass index (BMI) Body weight Oxygen saturation Oxygen saturation in Arterial blood by Pulse oximetry Heart rate Systolic blood pressure Diastolic blood pressure Provider Name and Address Organization Details Last Updated DateTime 3 157.48 cm 32.4 kg/m2 59038.9 5 g 97 % 97 % 97 /min 120 mm[Hg] 76 mm[Hg] Rebecca Stevens MA [place] - [facility] 3 11:36:39 Date Recorded Body height Body mass index (BMI) Body weight Heart rate Oxygen saturation Oxygen saturation in Arterial blood by Pulse oximetry Systolic blood pressure Diastolic blood pressure Provider Name and Address Organization Details Last Updated DateTime 4 157.48 cm 31.9 kg/m2 79283.1 7 g 90 /min 96 % 96 % 123 mm[Hg] 85 mm[Hg] Nevaeh Garcia MA [place] - [facility] 4 12:24:00 Date Recorded Body height Body mass index (BMI) Body weight Oxygen saturation Oxygen saturation in Arterial blood by Pulse oximetry Heart rate Systolic blood pressure Diastolic blood pressure Provider Name and Address Organization Details Last Updated DateTime 4 157.48 cm 30.8 kg/m2 53122.6 2 g 96 % 96 % 106 /min 126 mm[Hg] 82 mm[Hg] Nevaeh Garcia MA [facility] 4 16:19:19 Date Recorded Body height Body mass index (BMI) Body weight Oxygen saturation Oxygen saturation in Arterial blood by Pulse oximetry Heart rate Systolic blood pressure Diastolic blood pressure Provider Name and Address Organization Details Last Updated DateTime 4 157.48 cm 30.7 kg/m2 81657.5 2 g 95 % 95 % 93 /min 135 mm[Hg] 85 mm[Hg] Nevaeh Garcia MA [facility] 4 14:54:36 Date Recorded Body height Body mass index (BMI) Body weight Heart rate Oxygen saturation Oxygen saturation in Arterial blood by Pulse oximetry Systolic blood pressure Diastolic blood pressure Provider Name and Address Organization Details Last Updated DateTime 5 157.48 cm 30.6 kg/m2 32307.0 3 g 106 /min 98 % 98 % 127 mm[Hg] 76 mm[Hg] Nevaeh Garcia MA [facility] 5 15:51:29 Social History Question Answer Notes LastModified by Organizat ion Details LastModified Time Tobacco Smoking Status Former Smoker Levi Haney MA [facility] 12/23/2014 15:36:19 What Is Your Level Of Alcohol Consumption? None Information not available 08/17/2021 What Is Your Level Of Caffeine Consumption? Occasional Information not available 08/17/2021 In The 14 Days Before Symptom Onset, Have You Had Close Contact With A Laboratory-confir med COVID-19 While That Case Was Ill? No Information not available 08/17/2021 In The 14 Days Before Symptom Onset, Have You Had Close Contact With A Person Who Is Under Investigation For COVID-19 While That Person Was Ill? No Information not available 08/17/2021 Have You Been To An Area Known To Be High Risk For COVID-19? No Information not available 08/17/2021 Are You Currently Employed? No Information not available 08/17/2021 What Type Of Diet Are You Following? REGULAR Information not available 08/17/2021 What Was The Date Of Your Most Recent Tobacco Screening? 11/10/2024 Information not available 11/10/2024 What Is Your Relationship Status? Information not available 08/17/2021 Do You Have Smoke And Carbon Monoxide Detectors In Your Home? Yes Information not available 08/17/2021 Are You Passively Exposed To Smoke? No Information no t available 08/17/2021 How Much Tobacco Do You Smoke? No [email or web address] Information not available 07/16/2017 Do You Feel Stressed (tense, Restless, Nervous, Or Anxious, Or Unable To Sleep At Night)? [id number] Information not available 08/17/2021 Do You Use Any Illicit Or Recreational Drugs? No Information not available 08/17/2021 Has Tobacco Cessation Counseling Been Provided? No Information not available 08/17/2021 On What Date Was Tobacco Cessation Counseling Provided? 11/10/2024 Information not available 11/10/2024 Do You Or Have You Ever Used Any Other Forms Of Tobacco Or Nicotine? No Information not available 08/17/2021 Sex: Unknown Functional Status Question Answer Note LastModified by Organization D etails LastModified Time Are you able to care for yourself? Yes Information n ot available 08/17/2021 Mental Status None recorded. Family History Nothing Reported. Medical History Condition Response Coronary Artery Disease N Other N High Blood Pressure N Atrial Fibrillation N Thyroid Problems N Kidney or Bladder Problems N GI Problems N Depression N COPD N Blood Clots N Skin Problems N Eating Disorder N Anemia N Heart Attack (OK) N Diabetes Y Anxiety Disorder N Muscle, Joint, or Bone Problems N Seizures/Epilepsy N Acid Reflux (GERD) N Cancer N Stroke N Asthma N Allergies N ADHD N Substance Abuse N High Cholesterol Y Hepatitis N Liver Disease N Schizophrenia N Headaches N Osteoporosis N Heart Failure N Gynecological HistoryNo gynecological history recorded. Obstetrics History GPAL:G 0 P 0 0 0 0 Immunizations Vaccine Type Date Status Note Provider Nam e and Address Organization Details Recorded Time Influenza, adjuvanted, quadrivalent, PF 8 completed SORAYA Parra, [place] - [facility] 08/17/2021 14:09:02 Pneumococcal conjugate PCV 13 6 [place] [facility] 08/17/2021 14:09:02 zoster live 2 completed [place] [facility] 08/17/2021 14:09:02 Influenza, high-dose, quadrivalent, PF 7 completed [place] [facility] 08/17/2021 14:09:02 Influenza, split virus, quadrivalent, preservative 6 completed Not Available [facility] 11/14/2019 02:44:18 Tdap 6 completed Not Available [facility] 11/14/2019 02:30:18 Influenza, high-dose, trivalent, PF 7 completed Not Available [facility] 11/14/2019 02:34:21 Influenza, split virus, quadrivalent, preservative 9 completed Not Available [facility] 11/14/2019 02:38:42 COVID-19, mRNA, LNP-S, PF, 50 mcg/0.5 mL 4 completed SORAYA [place], [place] - [facility] 10/12/2024 15:25:08 Past Encounters Encounter ID Performer Location Encounter Start Date Encounter Closed Date Diagnosis/Indication Diagnosis SNOMED-CT Code Diagnosis ICD10 Code Diagnosis Note [id number] [facility] [address] [place] [address] 12/23/2014 15:03:27 12/24/2014 15:43:55 Hyperlipidemia 56613020 Doing well with medication s- refilled and ordered blood work. Will need mammogram at next visit. Follow up 6 months [id number] [facility] [address] [place] [address] 05/30/2015 16:34:15 05/31/2015 13:25:59 Knee pain 07863404 recent x-ray shows arthritis. advised on otc pain medication and considerat ion of an injection Hyperlipidemia 13084941 Doing well with medication s- refilled and ordered blood work. Will need mammogram at next visit. Follow up 6 months [id number] Liv Bill MD [facility] ([facility]) [address] [facility] [place] [address] 07/24/2016 08:31:39 07/24/2016 11:16:11 Hyperlipidemia 53879357 E78.5 Doing well with medication s- refilled and ordered blood work. Active or passive immunization 246710489 Z23 [id number] Caridad Chu CMA [facility]) [address] [facility] [place] [address] 07/16/2017 09:13:02 07/17/2017 12:03:40 Hyperlipidemia 90761300 E78.5 Doing well with medication s- refilled and ordered blood work. Knee pain 06071549 M25.5 69 recent x-ray shows arthritis. advised on otc pain medication and injection injected today Adult heal th examination 417313192 Z00.00 Due for mammogram and discussed advanced directives Active or passive immunization 105899791 Z23 reviewed and updated MD OF [facility] [address] [facility] [address] [place] [address] 09/03/2017 14:19:35 09/04/2017 13:03:13 Hyperglycemia 60776034 R73.9 Discussed dx and tx options and blood work. Encouraged healthy eating and will follow up in one month. [id number] [facility] [address] [facility] [address] [place] [address] 01/21/2018 09:32:50 01/28/2018 12:25:37 Adult health examination 696844564 Z00.00 mammogram update reviewed diet andneeds colonoscop y Hyperlipidemia 45941758 E78.5 Doing well with medication s- refilled and ordered blood work. Hyperglycemia 65546036 R 73.9 Discussed dx and tx options and blood work. Encouraged healthy eating and will follow up with blood work in 3 months [id number] [facility] [address] [place] [address] 08/19/2019 15:37:51 08/20/2019 15:24:32 Type 2 diabetes mellitus 82690476 E11.9 Knee pain 06073018 M25.5 62 Hyperlipidemia 70827183 E78.2 Screening for malignant neoplasm of colon 262585469 Z12.11 Administra tion of influenza vaccine 17844387 Z23 [id number] [facility] [address] [place] [address] 09/04/2019 10:52:30 09/04/2019 14:48:47 Type 2 diabetes mellitus 99136809 E11.9 Hyperlipidemia 14214516 E78.2 [id number] [facility] [address] [place] [address] 12/22/2019 10:49:52 12/22/2019 11:43:40 Type 2 diabetes mellitus 57011533 E11.9 Knee pain 37142113 M25.5 62 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 0217805923 99121 E13.21 [id number] Wei Sandra PA-C [facility] [address] [place] [address] 07/18/2020 09:46:15 07/18/2020 16:14:07 Type 2 diabetes mellitus 72319895 E11.9 [id number] Rebecca Stevens [facility] [address] [place] [address] 08/17/2021 13:50:30 08/17/2021 15:29:29 Primary degenerative dementia of the Alzheimer type, 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 026332644 E11.10 Type 2 tarun betes mellitus 25948140 E11.9 Unsteady when walking 22 876208 R26.89 [id number] [facility] [address] [place] [address] 10/23/2021 14:49:51 10/24/2021 10:34:52 Hyperlipidemia 83063693 E78.2 Multiple complications due to type 2 diabetes mellitus 139205004 E11.10 Obesity 366780258 E66.3 [id number] Wei Sandra PA-C [facility] [address] [place] [address] 11/08/2021 11:29:40 11/14/2021 10:42:03 Multiple complications due to type 2 diabetes mellitus 304469893 E11.10 Hyperlipidemia 69686450 E78.2 Type 2 tarun betes mellitus 56879643 E11.9 Primary de generative dementia of the Alzheimer type, senile onset 625302975 G30.1 [id number] Wei Sandra PA-C [facility] [address] [place] [address] 01/16/2023 14:32:35 01/21/2023 13:59:31 Type 2 diabetes mellitus without complication 170014088 E11.9 Primary de generative dementia of the Alzheimer type, senile onset 173847663 G30.1 Type 2 tarun betes mellitus 56722346 E11.9 Overweight 425103266 E66 .3 [id number] Wei Sandra PA-C [facility] [address] [place] [address] 01/25/2023 11:23:43 01/27/2023 12:33:16 Type 2 diabetes mellitus without complication 622172036 E11.9 Overweight 375588578 E66 .3 [id number] Wei Sandra PA-C [facility] [address] [place] [address] 01/06/2024 11:58:43 01/10/2024 15:42:56 Type 2 diabetes mellitus without complication 525171366 E11.9 Overweight 880564981 E66 .3 [id number] Wei Sandra PA-C [facility] [address] [place] [address] 04/27/2024 16:10:12 05/01/2024 14:47:39 Bilateral cataracts 11346761 H25.012 Type 2 tarun betes mellitus without complication 179338751 E11.9 Overweight 840419068 E66 .3 [id number] Rebecca Stevens MA [facility] [address] [place] [address] 10/12/2024 14:43:22 10/15/2024 09:40:57 Type 2 diabetes mellitus without complication 579796400 E11.9 Administra tion of SARS-CoV-2 mRNA vaccine 0518614165 Z23 Primary de generative dementia of the Alzheimer type, senile onset 788394456 G30.1 Type 2 tarun betes mellitus 18271347 E11.9 [id number] Rebecca Stevens MA [facility] [address] [place] [address] 11/10/2024 15:40:33 11/13/2024 09:46:37 Type 2 diabetes mellitus without complication 650114500 E11.9 Overweight 494615488 E66 .3 Health Concerns Section Related Observation LastModified by Organization Detai ls LastModified Time None Recorded Concern Status LastModified by Organization Details LastModified Time None Recorded Advance Directives Directive None Recorded Payers Encounter Date Sequence Insurance Name Policy Number Policy Gregorio Covered Member ID Gregorio Member ID Guarantor Name 01/25/2023 1 [facility] - DUAL OPTIONS (MEDICARE - MEDICAID REPLACEMENT HMO) [id number] [place] P Link [id number] [place] Link 04/27/2024 1 [facility] ON OR AFTER 10/28/2020 - DUAL ELIGIBLE (MEDICARE REPLACEMENT/AD VANTAGE - HMO) [place] Link [id number] [place] Link 10/12/2024 1 [facility] ON OR AFTER 10/28/2020 - DUAL ELIGIBLE (MEDICARE REPLACEMENT/AD VANTAGE - HMO) [place] Link [id number] [place] Link 11/10/2024 1 [facility] ON OR AFTER 10/28/2020 - DUAL ELIGIBLE (MEDICARE REPLACEMENT/AD VANTAGE - HMO) [place] Link [id number] [place] Link Notes Date Note Type Note Provider Name and Address Organization Details Recorded Time 01/25/2023 text/html here for labsblood sugar creeped up on her... Wei Sandra PA-C Attn: Accounting,[address] [place], [address], [facility] 01/25/2023 11:53:38 01/06/2024 text/html hx of diabetes...needs labs.. Wei Nanney, PA-C Attn: Accounting,[address] [facility], [place], [address], [facility] - [facility] 01/06/2024 12:38:27 04/27/2024 text/html cataract surgery release.. Wei Sandra PA-C Attn: Accounting,[address] [facility], [place], [address], [facility] - [facility] 04/27/2024 16:34:11 10/12/2024 text/html well check...things are good...no complaints...tarun ward does not check the level...a1c going up...reports diet not great...also has dementia... SORAYA Parra, [facility] 10/12/2024 16:21:04 11/10/2024 text/html check up on diabetes doesnt check her numbers but takes her meds... SORAYA Parra, [facility] 11/10/2024 16:19:20 OBGyn Episode No OBEpisode recorded.
--- OUTSIDE RECORDS SUMMARY | 2025-01-04 22:46 | XMS_ITS | Clinical Summary ---
Author Organization [facility] Address [facility] [place] [address] Care Team Providers Care Manager Of Care Name Role Phone Ivan Sandra Primary Care Provider [phone] Allergies No known active allergies Medications metFORMIN 1000 MG tabletIndicatio ns:diabetes Take 1 tablet (1,000 mg total) by mouth 2 (two) times daily with meals. Indications: diabetes 0 Active JANUVIA 100 MG tabletIndicatio ns:diabetes Take 1 tablet (100 mg total) by mouth daily. Indications: diabetes 0 Active glipiZIDE 5 MG tabletIndicatio ns:diabetes Take 2 tablets (10 mg total) by mouth 2 (two) times daily. Indications: diabetes 1 Active atorvastatin 10 MG tablet Take 1 tablet (10 mg total) by mouth nightly at bedtime. 30 tablet 1 Active Additional Information Patient taking differently:10 mg Oral Nightly at bedtime,Indications: cholesterol, Reported on 04/29/2024 acidophilus capsule Take 1 capsule by mouth daily. 30 capsule 1 Active Lactobacillus (ACIDOPHILUS) Cap Use as directed 1 capsule in the mouth or throat daily. Active ketorolac (ACULAR) 0.5 % ophthalmic solution Place 1 drop into the right eye 4 (four) times daily. Active memantine (NAMENDA) 10 MG tablet Take 1 tablet (10 mg total) by mouth 2 (two) times daily. Active ofloxacin (OCUFLOX) 0.3 % ophthalmic solution Place 1 drop into the right eye 4 (four) times daily. Active prednisoLONE acetate (PRED FORTE) 1 % ophthalmic suspension Place 1 drop into the right eye 4 (four) times daily. Active Active Problems Problem Noted Date Diagnosed Date Other closed fracture of rig ht patella with delayed healing, subsequent encounter 10/01/2021 Diabetes mellitus, type 2 ([facility]/HCC HHS/HCC) Resolved Problems Problem Noted Date Diagnosed Date Resolved Date Pancreatitis (HHS/HCC) 08/06/202108/08 Nausea, vomiting, and diarrhea 08/08/2021 Diverticulosis large intesti ne w/o perforation or abscess w/o bleeding 07/28 Hypokalemia 08/08/2021 Immunizations Name Administration Dates Next Due Fluad influenza vaccine, Matthew drivalent (aIIV4), Inactivated, adjuvanted, preservative free, 0.5 mL,IM use 07/16/2018 Fluzone High Dose - >Age 65 (Prefilled Syringe) 07/16/2017 Pneumococcal (Prevnar 13) 07/24/2016 Zoster (Zostavax) 46198 Unt/0.65Ml 10/10/2012 Family History Medical History Relation Comments Heart Disease Father Heart Disease Mother Relation Status Comments Father Mother Social History Tobacco Use Types Packs/Day Years Used Date Smoking Tobacco: Former Cigarettes Smokeless Tobacco: Never Tobacco Cessation:Counseling Given: No Comments:quit 14 years ago Alcohol Use Standard Drinks/Week Comments Never 0 (1 standard drink = 0.6 oz pur e alcohol) AUDIT-C Answer Date Recorded Frequency of Alcohol Consumption Never 03/24/2020 Average Number of Drinks Not on file 020 Frequency of Binge Drinking Not on file 02/26 Comments No Sex and Gender Information Value Date Recorded Sex Assigned at Not on file Legal Sex Female 7:12 PM CDT Gender Identity Not on file Sexual Orientation Not on file Last Filed Vital Signs Vital Sign Reading Time Taken Comments Blood Pressure 139/99 07/01/2024 3:15 PM CDT Pulse 71 07/01/2024 3:15 PM CDT Temperature 36.1 C (97 F) 07/01/2024 3:15 PM CDT Respiratory Rate 18 07/01/2024 3:15 PM CDT Oxygen Saturation 97% 07/01/2024 3:15 PM CDT Inhaled Oxygen Concentration - - Weight 74.8 kg (165 lb) 07/01/2024 1:32 PM CDT Height 162.6 cm (5' 4 ) 07/01/2024 1:32 PM CDT Body Mass Index 28.32 07/01/2024 1:32 PM CDT Plan of Treatment Health Maintenance Due Date Last Done Comments Kidney Health Evaluation 1945 Lipid Panel 1946 Diabetes: Retinopathy Eye Exam 1964 Hepatitis C 1963 Annual Medicare Wellness Visit 2011 Dexa Scan (General) 2011 Zoster Vaccines (2 of 3) 12/05/2012 10/10/2012 Hemoglobin A1C 04/19/2021 10/19/2020, 11/27/2017 RSV Immunization or 60+ Years (1 - 1-dose 75+ series) 2021 COVID-19 Vaccine (3 - season) 2024 05/26/2021, 05/05/2021 Influenza Adult (#1) 2024 08/19/2019, 07/16/2018, 07/16/2017, Additional history exists DTaP, Tdap and Td Vaccines (2 - Td or Tdap) 07/24/2026 07/24/2016 Pneumococcal Vaccine: 65+ Years Completed 07/24/2016, 07/25/2012 Meningococcal B Vaccine Aged Out No l onger eligible based on patient's age to complete this topic Meningococcal Vaccine Aged Out No abiel jose eligible based on patient's age to complete this topic RSV Immunizations Under 20 Months Aged Out No longer eligible based on patient's age to complete this topic Medical Devices Implanted Type Area Lean Manager Device Identifier Shelf Expiration Date Model / Serial / Lot Iol Jaime [id number] - [id number] Implanted:Qty: 1 on 04/29/2024 by Aixa Suarez MD at [facility] Lens Left: Eye JAIME - [employer]GICAL DIV [id number] 12/02/2026 CNA0T0 / [id number] / Iol Jaime Cna0t0 - [id number] Implanted:Qty: 1 on 07/01/2024 by Aixa Suarez MD at [facility] Lens Right: Eye [employer] - [employer] [id number] 12/07/2026 CNA0T0 / [id number] / Procedures Procedure Name Priority Date/Time Associated Diagnosis Comments HEMOGLOBIN, GLYCOSYLATED Routine 10/19/2020 from Last 3 Months or Most Recently Relevant to Health Maintenance Results * HEMOGLOBIN, GLYCOSYLATED (10/19/2020) HGB A1C 11.9 % 10/19/2020 us Doc [facility] Final Result from Last 3 Months or Most Recently Relevant to Health Maintenance [facility] [address] Advance Directives * Full Code (Latest Code Status on File) Date Activated Date Inactivated Comments 10/06/2021 2:44 PM 04/29/2024 12:14 PM * Full Code Date Activated Date Inactivated Comments 10/05/2021 8:36 PM 10/06/2021 2:32 PM * Full Code Date Activated Date Inactivated Comments 10/05/2021 3:17 PM 10/05/2021 4:13 PM * Full Code Date Activated Date Inactivated Comments 10/01/2021 10:36 PM 10/03/2021 6:15 PM * Full Code Date Activated Date Inactivated Comments 08/06/2021 2:58 PM 08/08/2021 7:37 PM Care Teams Manager Of Care Relationship Specialty Start Date End Date Ivan Sandra PA [address] [place] [address] PCP - General PHYSICIAN CANAL STRUCTURE OPERATOR 11/10/19
--- OUTSIDE RECORDS SUMMARY | 2025-01-04 22:46 | XMS_ITS | Clinical Summary ---
Author Organization [facility] Address [address] [place] [address] Phone Care Team Providers Care Community Outreach Coordinator Name Role Phone Iavn Sandra Primary Care Provider [phone] Rachelle Btucher MD Unavailable Allergies No known active allergies Medications simvastatin (ZOCOR) 40 MG TabletIndicatio ns:Dyslipidemia 10/13/2020 Act gee Januvia 100 MG TabletIndicatio ns:Type 2 diabetes mellitus with diabetic polyneuropathy, without long-term current use of insulin (HCC) Take 1 Tablet by mouth daily. 90 Tablet 1 07/13/2021 Active metFORMIN (GLUCOPHAGE) 1000 MG TabletIndicatio ns:Type 2 diabetes mellitus with diabetic polyneuropathy, without long-term current use of insulin (HCC) Take 1 Tablet by mouth 2 times daily (with meals). 180 Tablet 1 07/13/2021 Active glipiZIDE (GLUCOTROL) 5 MG TabletIndicatio ns:Type 2 diabetes mellitus with diabetic polyneuropathy, without long-term current use of insulin (HCC) Take 2 Tablets by mouth 2 times daily. 360 Tablet 1 10/13/2021 Active Active Problems Problem Noted Date Diagnosed Date Type 2 diabetes mellitus wit h diabetic polyneuropathy, without long-term current use of insulin 12/06/2024 Encounters Date Type Department Care Team Description 12/21/2024 Telephone [facility] Central Call Center [address] [place] [address] Ivan Sandra PAC 12/03/2024 1:15 PM TIRE AND TUBE REPAIRER Office Visit [facility] - Endocrinology [facility] [address] [place] [address] Rachelle Butcher MD Type 2 diabetes mellitus with diabetic polyneuropathy, without long-term current use of insulin (HCC) (Primary Dx); Overweight Discharge Disposition: Discharged to home or Selfcare 12/03/2024 Travel from Last 3 Months Immunizations Immunization Administration Dates Next Due Influenza Vaccine 07/16/2017 Influenza Vaccine,unspecified Formulation 2011 Influenza, High-dose, Quadrivalent 07/16/2017 Influenza, Injectable, Quadrivalent 08/19/2019,0 07/24/2016 Influenza, Quadrivalent, Adjuvanted 07/16/2018 Influenza, Seasonal, Injectable, Undefined 07/12,07/08/2013 Influenza, Trivalent, Adjuvanted, PF 07/16/2018 Influenza, high-dose, trivalent, PF 07/16/2017 Pneumococcal Vaccine - 13 Valent 07/24/2016,06/29 Pneumococcal Vaccine Adult - 23 Valent 2 TDAP Vaccine 07/24/2016 Zoster Vaccine, live 10/10/2012 Family History Relation Name Status Comments Brother Father Mother Sister Alive Social History Tobacco Use Types Packs/Day Years Used Date Smoking Tobacco: Former Smokeless Tobacco: Never Tobacco Cessation:Counseling Given: No Alcohol Use Standard Drinks/Week Comments Never 0 [...] Sign Reading Time Taken Comments Blood Pressure 112/84 12/03/2024 1:01 PM TIRE AND TUBE REPAIRER Pulse 92 12/03/2024 1:01 PM TIRE AND TUBE REPAIRER Temperature 36.3 C (97.3 F) 12/03/2024 1:01 PM TIRE AND TUBE REPAIRER Respiratory Rate 18 12/03/2024 1:01 PM TIRE AND TUBE REPAIRER Oxygen Saturation 98% 12/03/2024 1:01 PM TIRE AND TUBE REPAIRER Inhaled Oxygen Concentration - - Weight 75.3 kg (166 lb) 12/03/2024 1:01 PM TIRE AND TUBE REPAIRER Height 163.8 cm (5' 4.5 ) 12/03/2024 1:01 PM TIRE AND TUBE REPAIRER Body Mass Index 28.05 12/03/2024 1:01 PM TIRE AND TUBE REPAIRER Plan of Treatment Upcoming Encounters Date Type Department Care Team (Late st Contact Info) Description 06/03/2025 1:00 PM CDT Office Visit [facility] - Endocrinology - [place] [address] [place] [address] Rachelle Butcher MD [facility] [address] [address] Health Maintenance Due Date Last Done Comments DEXA Bone Density 1945 Diabetes: Eye Exam 1945 Hepatitis C Virus (HCV) Screening 1945 Diabetes: Nephropathy Screening 1964 Zoster Immunization (2 of 3) 12/05/2012 10/10/2012 SARS-COV-2 Immunization ( season) 2025 10/12/2024, 07/27/2023, 01/01/2022, Additional history exists Diabetes: Hemoglobin A1c 06/02/2025 025, 05/10/2022, 02/01/2022, Additional history exists Diabetes: Foot Exam 12/03/2025 12/03/2024 Td Immunization Every 10 Years (Adults With 1 Tdap) 06/06/2034 06/06/2024, 05/25/2023, 07/24/2016 Pneumococcal Immunization (50+ years) Completed 07/24/2016, 07/24/2016, 07/25/2012 Pneumococcal Immunization Combined Discontinued 07/24/2016, 07/24/2016, 07/25/2012 DTaP/Tdap/Td Immunization Discontinued 2023, 05/25/2023, 07/24/2016 Influenza Immunization Completed , 07/27/2023, 08/19/2019, Additional history exists Respiratory Syncytial Virus (RSV) Immunization (Adult) Completed 06/06/2024 Hepatitis B Immunization Aged Out No longer eligible based on patient's age to complete this topic Meningococcal Immunization (ACWY) Aged Out No longer eligible based on patient's age to complete this topic Rotavirus Immunization Aged Out No lo nger eligible based on patient's age to complete this topic Procedures Procedure Name Priority Date/Time Associated Diagnosis Comments POCT GLYCOSYLATED HEMOGLOBIN Routine 12/03/2024 1:08 PM TIRE AND TUBE REPAIRER Type 2 diabetes mellitus with diabetic polyneuropathy, without long-term current use of insulin (HCC) from Last 3 Months Results * (ABNORMAL) POCT GLYCOSYLATED HEMOGLOBIN (12/03/2024 1:08 PM TIRE AND TUBE REPAIRER) HGB-A1C 7.0(A) 4 - 6 % Blood 12/03/2024 1:08 PM TIRE AND TUBE REPAIRER Rachelle Butcher MD POINT OF CARE TESTING (MANUAL) F inal Result from Last 3 Months Insurance MEDICARE C [place] Care Teams Community Outreach Coordinator Relationship Specialty Start Date End Date Ivan Sandra PAC [address] [place] [phone] PCP - General Physician Oncology Patient Navigator 07/28/20 Rachelle Butcher MD [address] [address] (work) Consulting Physician Endocrinology 11/15/20
[2025-01-04 22:54] VITALS: BP 110/73; PULSE 98; RESP 18; TEMP 36.8; O2SAT 92
[2025-01-04 22:57] VITALS: O2SAT 93
--- OUTSIDE RECORDS SUMMARY | 2025-01-04 23:13 | XMS_ITS | Encounter Summary ---
Author Organization [facility] Address [address] [place] [address] Phone Care Team Providers Care Glazing Machine Operator Name Role Phone Ivan Sandra PAC Primary Care Provider [phone] Rachelle Butcher MD Unavailable Encounter Details Date Type Department Care Team (Late st Contact Info) Description 12/21/2024 Telephone [facility] Central Call Center [address] [place] [address] Ivan Sandra, PAC [address] [place] [address] Social History Tobacco Use Types Packs/Day Years [...] Radha calls back, they need to call [facility] office @ [phone] OL PRINCIPAL documented in this encounter Plan of Treatment Upcoming Encounters Date Type Department Care Team (Late st Contact Info) Description 06/03/2025 1:00 PM CDT Office Visit [facility] - [facility] - [facility] [address] [place] [address] Rachelle Butcher MD [address] [address] documented as of this encounter Visit Diagnoses Not on filedocumented in this encounter Care Teams Glazing Machine Operator Relationship Specialty Start Date End Date Ivan Sandra, [facility] [address] [place] [phone] PCP - General Physician Salon Manager 07/28/20 Rachelle Butcher MD [address] [address] Consulting Physician Endocrinology 11/15/20 documented as of this encounter
--- OUTSIDE RECORDS SUMMARY | 2025-01-04 23:13 | XMS_ITS | Clinical Summary ---
Author Organization [facility] Address Critical access hospital[address] [place] [address] Care Team Providers Care Compounding And Finishing Supervisor Name Role Phone Ivan Sandra Primary Care Provider [phone] Allergies No known active allergies Medications metFORMIN [...] subsequent encounter 10/01/2021 Diabetes mellitus, type 2 ([facility]/HCC HHS/HCC) Resolved Problems Problem Noted Date Diagnosed [...] 07/16/2017 Pneumococcal (Prevnar 13) 07/24/2016 Zoster (Zostavax) 67092 Unt/0.65Ml 10/10/2012 Family History Medical History Relation [...] this topic Medical Devices Implanted Type Area Big Data Lead Device Identifier Shelf Expiration Date Model / Serial / Lot Iol Jaime [id number] - [id number] Implanted:Qty: 1 on 04/29/2024 by Aixa Suarez MD at [facility] Lens Left: Eye JAIME - SURGICAL DIV [id number] 12/02/2026 CNA0T0 / [id number] / Iol Jaime Cna0t0 - [id number] Implanted:Qty: 1 on 07/01/2024 by Aixa Suarez MD at [facility] Lens Right: Eye [employer] - [employer] [id number] 12/07/2026 CNA0T0 / [id number] / Procedures Procedure Name Priority Date/Time Associated Diagnosis Comments HEMOGLOBIN, GLYCOSYLATED Routine 10/19/2020 from Last 3 Months or Most Recently Relevant to Health Maintenance Results * HEMOGLOBIN, GLYCOSYLATED (10/19/2020) HGB A1C 11.9 % 10/19/2020 us Doc [facility] Final Result from Last 3 Months or Most Recently Relevant to Health Maintenance Insurance MEDICAID [facility] [address] Advance Directives * Full Code (Latest [...] 2:58 PM 08/08/2021 7:37 PM Care Teams Compounding And Finishing Supervisor Relationship Specialty Start Date End Date Ivan Sandra PA [address] [place] [address] PCP - General PHYSICIAN RESOURCE PROGRAM TEACHER 11/10/19
--- OUTSIDE RECORDS SUMMARY | 2025-01-04 23:13 | XMS_ITS | Clinical Summary ---
Author Organization [facility] Address [address] [place] [address] Phone Care Team Providers Care Manager Pharmacy Name Role Phone Ivan Sandra Primary Care Provider [phone] Rachelle Butcher MD Unavailable Allergies No known active allergies [...] Type Department Care Team Description 12/21/2024 Telephone [facility] Central Call Center [address] [place] [address] Ivan Sandra PAC 12/03/2024 1:15 PM PROJECT COORDINATOR Office Visit [facility] - Endocrinology [facility] [address] [place] [address] Rachelle Butcher MD Type 2 diabetes mellitus [...] Comments Blood Pressure 112/84 12/03/2024 1:01 PM PROJECT COORDINATOR Pulse 92 12/03/2024 1:01 PM PROJECT COORDINATOR Temperature 36.3 C (97.3 F) 12/03/2024 1:01 PM PROJECT COORDINATOR Respiratory Rate 18 12/03/2024 1:01 PM PROJECT COORDINATOR Oxygen Saturation 98% 12/03/2024 1:01 PM PROJECT COORDINATOR Inhaled Oxygen Concentration - - Weight 75.3 kg (166 lb) 12/03/2024 1:01 PM PROJECT COORDINATOR Height 163.8 cm (5' 4.5 ) 12/03/2024 1:01 PM PROJECT COORDINATOR Body Mass Index 28.05 12/03/2024 1:01 PM PROJECT COORDINATOR Plan of Treatment Upcoming Encounters Date Type Department Care Team (Late st Contact Info) Description 06/03/2025 1:00 PM CDT Office Visit [facility] - [facility]ology - [place] [address] [place] [address] Rachelle Butcher MD [facility] [address] [address] Health Maintenance Due Date Last [...] POCT GLYCOSYLATED HEMOGLOBIN Routine 12/03/2024 1:08 PM PROJECT COORDINATOR Type 2 diabetes mellitus with diabetic polyneuropathy, without long-term current use of insulin (HCC) from Last 3 Months Results * (ABNORMAL) POCT GLYCOSYLATED HEMOGLOBIN (12/03/2024 1:08 PM PROJECT COORDINATOR) HGB-A1C 7.0(A) 4 - 6 % Blood 12/03/2024 1:08 PM PROJECT COORDINATOR Rachelle Butcher MD POINT OF CARE TESTING (MANUAL) F inal Result from Last 3 Months Insurance MEDICARE C [place] Care Teams Manager Pharmacy Relationship Specialty Start Date End Date Ivan Sandra PAC [address] [place] [phone] PCP - General Physician Tab Cutter 07/28/20 Rachelle Butcher MD [address] [address] (work) Consulting Physician Endocrinology 11/15/20
[2025-01-04 23:56] LABS: Influenza A QL RT-PCR Negative (Negative); Influenza B QL RT-PCR Negative (Negative); RSV RNA, RT-PCR Negative (Negative); SARS-CoV-2 RNA PCR Negative (Negative)
[2025-01-05 00:30] LABS: Hematocrit 40.8 % (35.0-42.0); Hemoglobin 13.6 g/dL (11.7-13.8); Immature Platelet Fraction Pct 6.6 % (1.0-7.0); Mean Corpuscular HGB Conc 33.3 g/dL (32-36); Mean Corpuscular Hemoglobin 31.6 pg (27.0-31.0); Mean Corpuscular Volume 94.7 fL (78.0-102.0); Mean Platelet Volume 11.9 fl (9.2-11.8); Platelet Count Result 133 K/mm3 (150-420); Red Blood Count 4.31 M/mm3 (4.20-5.40); Red Cell Distribution Width 12.3 % (11.6-14.4)
--- NOTE | 2025-01-05 00:35 | ED_ITS ---
HPI - URI/Sore Throat General Chief Complaint: Upper Respiratory Infection Stated Complaint: upper respiratory Time Seen by Provider: 01/04/25 23:01 Source: patient and family (daughter) Mode of arrival: ambulatory Limitations: no limitations (poor historian) History of Present Illness HPI Narrative: 79 year old female presents to the Emergency Department complaining of cough and congestion for past week. Has not seen Primary Care Provider. Daughter states patient is not taking any of her home medications Patient is diabetic. When questioned why does not take, she states she does not want to. Patient is poor historian. MD elicited complaint: cough and nasal congestion Onset (ago): week(s) (1) Able to tolerate fluids by mouth: Yes Exacerbating factors: nothing Relieving factors: nothing Associated symptoms: nasal congestion and cough Treatments prior to arrival: none Related Data Home Medications ?Medication ?Instructions ?Recorded ?Confirmed ?Last Taken ?Type atorvastatin 10 mg tablet 10 mg PO QPM 01/04/25 01/04/25 Unknown History glipizide 5 mg tablet 5 mg PO DAILY 01/04/25 01/04/25 Unknown History memantine 10 mg tablet 10 mg PO BID 01/04/25 01/04/25 Unknown History metformin 1,000 mg tablet 1,000 mg PO BID 01/04/25 01/04/25 Unknown History sitagliptin phosphate 100 mg 100 mg PO DAILY 01/04/25 01/04/25 Unknown History tablet (Januvia) Allergies Allergy/AdvReac Type Severity Reaction Status Date / Time No Known Allergies Allergy Verified 11/23/23 19:36 Review of Systems 2 Review of Systems: All systems reviewed & are unremarkable except as noted in HPI and below Constitutional: Constitutional: Reports as per HPI, Denies chills and Denies fever(s) Eyes: Eyes: Reports as per HPI ENT: Reports system reviewed and no additional complaints, except as documented Cardiovascular: Cardiovascular: Reports as per HPI and Denies chest pain Respiratory: Respiratory: Reports as per HPI, Reports chest congestion and Reports cough Gastrointestinal: Gastrointestinal: Reports as per HPI, Denies abdominal pain, Denies diarrhea, Denies nausea and Denies vomiting Genitourinary: Genitourinary: Reports no additional female genitourinary complaints, Denies dysuria and Denies flank pain Musculoskeletal: Musculoskeletal: Reports no additional musculoskeletal complaints Integumentary/Breasts: Skin/Breast: Reports system reviewed and no additional complaints, except as docu Neurologic: Reports system reviewed and no additional complaints, except as documented Psychiatric: Psychiatric: Reports no additional psychiatric complaints Endocrine: Endocrine: Reports no additional endocrine complaints Hematologic/Lymphatic: Hematologic/Lymphatic: Reports no additional hematologic/lymphatic complaints Allergic/Immunologic: Allergic/Immunologic: Reports no additional allergic/immunologic complaints Exam 2 Const: General: no acute distress Nutritional Appearance: obese O rientation/consciousness: patient oriented x3 Limitations: no limitations HENMT: Head: normal to inspection Ears: external ears normal F navya/Nose/Sinus: Normal external nose present Face and sinus: normal facial exam Mouth: Yes Normal oral and palatal mucosa present Throat: posterior oropharynx normal Eyes: Pupils: Equal, round and reactive pupils present EOM: EOMs intact bilaterally Direct Ophthalmoscopy: no photophobia Neck: Neck: normal visual inspection and no meningeal signs Chest: Chest palpation & inspection: normal inspection of the chest Resp: Auscultation: diminished lung sounds Cardio: Rate: regular rate Rhythm: regular rhythm GI: Inspection: non-distended GI Palp: Yes Soft to palpation and No Tenderness to palpation present (GI) : General: Yes bladder normal to palpation Back/Spine/Pelvis: Back: no CVA tenderness Skin: General skin exam: normal color Rashes: no rashes Neuro: General: patient oriented x3 Gait exam (Neuro): Normal gait present (shuffling slow gait) Other: grossly intact Extrem: General: normal to inspection and no clubbing, cyanosis or edema Course Course Emergency Course: 79 y/o female presents to the ED c/o cough and congestion for past week. Also patient is not taking any of her home medications because I don't want to. PE: decreased breath sounds CBC: H/H 13.6/40.8; Pkt 133; wbc 4 CMP: Na 141, K 3.9, Cl 106, CO2 28, Glc 139, BUN 16, Cr 1.2; LFT's normal BNP: 64 Covid: negative Influenza: negative RSV: negative CXR: LLL pleural effusion Tx: DuoNeb, Zithromax 500 mg po, Tessalon 200 mg po *reviewed and discussed with patient. Patient wants to go home. Further management discussed with patient. Patient voices understanding and agreement. Rx and Instructions Vital Signs Vital signs: Vital Signs Temperature 36.8 C 01/04/25 22:54 Pulse Rate 98 01/04/25 22:54 Respiratory Rate 18 01/04/25 22:54 Blood Pressure 110/73 01/04/25 22:54 Pulse Oximetry 92 01/04/25 22:54 Oxygen Delivery Room Air 01/04/25 22:54 Temperature 36.8 C 01/04/25 22:54 Pulse Rate 77 01/05/25 01:09 Respiratory Rate 20 01/05/25 01:09 Blood Pressure 105/71 01/05/25 01:09 Pulse Oximetry 98 01/05/25 01:09 Oxygen Delivery Room Air 01/05/25 01:09 MDM - URI/Sore Throat Lab Data 01/05/25 00:24 01/05/25 00:24 Labs: Lab Results 01/04/25 01/05/25 Range/Units 23:18 00:24 WBC 4.0 L (4.8-10.8) K/mm3 RBC 4.31 (4.20-5.40) M/mm3 Hgb 13.6 (11.7-13.8) g/dL Hct 40.8 (35.0-42.0) % MCV 94.7 (78.0-102.0) fL MCH 31.6 H (27.0-31.0) pg MCHC 33.3 (32-36) g/dL RDW 12.3 (11.6-14.4) % Plt Count 133 L (150-420) K/mm3 MPV 11.9 H (9.2-11.8) fl Immature Gran % (Auto) Not Reportable Neut % (Auto) Not Reportable Lymph % (Auto) Not Reportable [place] % (Auto) Not Reportable Eos % (Auto) Not Reportable Baso % (Auto) Not Reportable Lymph # (Auto) Not Reportable [place] # (Auto) Not Reportable Eos # (Auto) Not Reportable Baso # (Auto) Not Reportable Abs Immat Gran (auto) Not Reportable Absolute Neuts (auto) Not Reportable Absolute Nucleated RBC Not Reportable Neutrophils % (Manual) 46 (46-73) % Band Neutrophils % 0 (0-6) % Lymphocytes % (Manual) 37 (18-44) % Monocytes % (Manual) 14 H (3-9) % Eosinophils % (Manual) 2 (1-6) % Basophils % (Manual) 1 (0-1) % Nucleated RBC % Not Reportable Abs Neuts (Manual) 1.84 (1.7-7.2) K/mm3 Abs Lymphs (Manual) 1.48 (1.1-4.5) K/mm3 Abs Monocytes (Manual) 0.56 (0.1-0.90) K/mm3 Absolute Eos (Manual) 0.08 (0.02-0.50) K/mm3 Abs Basophils (Manual) 0.04 (0-0.1) K/mm3 Platelet Estimate Adequate (Adequate) % Immature Plt Fraction 6.6 (1.0-7.0) % Schistocytes Not Reportable Sodium 141 (136-145) mmol/L Potassium 3.9 (3.5-5.1) mmol/L Chloride 106 (98-108) mmol/L Carbon Dioxide 28 (21-32) mmol/L Anion Gap 7 (4-12) mmol/L BUN 16 (7-18) mg/dL Creatinine 1.20 H (0.55-1.02) mg/dL Estim Creat Clear Calc 34 ml/min Estimated GFR 43 L (59 - ) Glucose 139 H (70-99) mg/dL Calculated Osmolality 295 (285-295) mOsm/kg Calcium 11.1 H (8.5-10.1) mg/dL Total Bilirubin 0.9 (0.00-1.00) mg/dL AST 13 L (15-37) U/L ALT 18 (14-59) U/L Alkaline Phosphatase 101 (46-116) U/L NT-Pro-B Natriuret Pep 64 (0-450) pg/mL Total Protein 7.2 (6.4-8.2) g/dL Albumin 3.9 (3.4-5.0) g/dL Influenza A (RT-PCR) Negative (Negative) Influenza B (RT-PCR) Negative (Negative) RSV (RT-PCR) Negative (Negative) SARS-CoV-2 RNA (RT-PCR) Negative (Negative) Discharge Plan Discharge Clinical Impression: Bronchitis, Upper respiratory infection Patient Disposition: Home, Self-Care Condition: Stable Instructions: Antibiotic Form, Acute Bronchitis (ED) Additional Instructions: Rest Push fluids Tylenol 650 mg every 4 hours and Ibuprofen 600 mg every 6 hours for fever and body aches Take medications as prescribed Continue home medications Follow up Primary Care Physician Patient Language: Portuguese Prescriptions: New azithromycin [Zithromax Z-Arjun] 250 mg tablet See Rx Instructions .ROUTE .COMPLEX Qty: 6 0RF Rx Instructions: For 250 mg dose pack: take 500 mg today (day 1), then 250 mg for 4 days (days 2-5) [facility] Max Strength Cough 15 mg/5 mL syrup 15 mg PO Q8H PRN (Reason: cough) Qty: 118 0RF albuterol sulfate [Ventolin HFA] 90 mcg/actuation HFA aerosol inhaler 2 puff inhalation Q4H PRN (Reason: shortness of breath or wheezing) Qty: 8.5 0RF No Action atorvastatin 10 mg tablet 10 mg PO QPM glipizide 5 mg tablet 5 mg PO DAILY metformin 1,000 mg tablet 1,000 mg PO BID memantine 10 mg tablet 10 mg PO BID Januvia 100 mg tablet 100 mg PO DAILY Follow-up/Referrals: Jocy,BARB Osullivan [Primary Care Provider] - Time of Disposition: 01:19
[2025-01-05 00:47] LABS: Band Neutrophils Percent 0 % (0-6); Basophils Absolute Manual 0.04 K/mm3 (0-0.1); Basophils Percent Manual 1 % (0-1); Eosinophils Absolute Manual 0.08 K/mm3 (0.02-0.50); Eosinophils Percent Manual 2 % (1-6); Lymphocytes Absolute Manual 1.48 K/mm3 (1.1-4.5); Lymphocytes Percent Manual 37 % (18-44); Monocytes Absolute Manual 0.56 K/mm3 (0.1-0.90); Monocytes Percent Manual 14 % (3-9); Neutrophils Absolute Manual 1.84 K/mm3 (1.7-7.2); Neutrophils Percent Manual 46 % (46-73); Platelet Estimate Adequate (Adequate)
[2025-01-05 00:50] LABS: Alanine Aminotransferase 18 U/L (14-59); Albumin Level 3.9 g/dL (3.4-5.0); Alkaline Phosphatase 101 U/L (46-116); Anion Gap 7 mmol/L (4-12); Aspartate Amino Transferase 13 U/L (15-37); Bilirubin,Total 0.9 mg/dL (0.00-1.00); Blood Urea Nitrogen 16 mg/dL (7-18); Calcium 11.1 mg/dL (8.5-10.1); Carbon Dioxide 28 mmol/L (21-32); Chloride 106 mmol/L (98-108); Estimated CRCL calculation 34 ml/min; Estimated Glomerular Filt Rate 43; Glucose 139 mg/dL (70-99); NT Pro B Type Natriuretic Pept 64 pg/mL (0-450); Osmolality Calculated 295 mOsm/kg (285-295); Potassium 3.9 mmol/L (3.5-5.1); Sodium 141 mmol/L (136-145); Total Protein 7.2 g/dL (6.4-8.2)
[2025-01-05 01:09] VITALS: BP 105/71; PULSE 77; RESP 20; O2SAT 98
[2025-01-05 01:15] VITALS: PULSE 85; RESP 18; O2SAT 97
[2025-01-05] MEDS: AZITHROMYCIN 250 MG TABLET 500 MG PO (01:17)
[2025-01-05] MEDS: BENZONATATE 100 MG CAPSULE 200 MG PO (01:18)
[2025-01-05] MEDS: IPRATROPIUM 0.5 MG/ALBUTEROL SULFATE 2.5 MG AMPUL.NEB 3 ML INHALATION (01:18)
[2025-01-05 01:30] VITALS: PULSE 85; RESP 18; O2SAT 96
[2025-01-05 01:45] VITALS: BP 106/72; PULSE 75; RESP 18; TEMP 36.6; O2SAT 95
== END 2025-01-05 01:45 | disposition home or self-care (01) ==
PROVIDERS: Emergency Provider Emergency Medicine; PCP Physician Assistant
DX: J40 Bronchitis, not specified as acute or chronic (principal); J06.9 Acute upper respiratory infection, unspecified; E11.9 Type 2 diabetes mellitus without complications; Z79.899 Other long term (current) drug therapy; Z79.84 Long term (current) use of oral hypoglycemic drugs; Z20.822 Contact with and (suspected) exposure to COVID-19
CPT/HCPCS: 36415; 71045; 80053; 83880; 85025; 85055; 87637; 94640; 99283; A9270

== ENCOUNTER 2025-03-27 08:04 | Emergency (ER) | payer OTHER, SELFPAY ==
--- NOTE | ~2025-03-27 | CT_ITS ---
EXAMINATION: CT BRAIN W/O DATE: 03/27/2025 08:32 INDICATION: Status post fall. Possible head injury. TECHNIQUE: Computed tomography (CT) of the head was performed without intravenous contrast. The dose- length product was 605.33 mGy-cm. Automated exposure control and iterative reconstruction technique w ere employed. COMPARISON: No prior studies for comparison. FINDINGS: Generalized brain parenchymal volume loss. There are scattered mild periventricular and sub cortical white matter changes, most likely related to small vessel ischemic disease (microangiopathy) . There is intracranial atherosclerosis. There are coarse calcifications in the basal ganglia which a re symmetric. No ventriculomegaly or midline shift. Midline sagittal images demonstrate a normal corpus callosum, c raniovertebral junction and sella turcica. Basilar cisterns are patent. Paranasal sinuses and mastoids are pneumatized. No depressed skull fractures. IMPRESSION: 1. No acute intracranial abnormality. Reviewed, dictated and finalized at location A.
[2025-03-27 08:04] VITALS: BP 110/66; PULSE 83; RESP 16; TEMP 36.1; O2SAT 100
--- OUTSIDE RECORDS SUMMARY | 2025-03-27 08:07 | XMS_ITS | Encounter Summary ---
Author Organization [facility] Address [address] [place] [address] Phone Care Team Providers Care Booster Pump Operator Name Role Phone Ivan Sandra PAC Primary Care Provider [phone] Rachelle Butcher MD Unavailable Encounter Details Date Type Department Care Team (Late st Contact Info) Description 12/21/2024 Telephone [facility] Central Call Center [address] [place] [address] Ivan Sandra, PAC [address] [place] [address] Social History Tobacco Use Types Packs/Day Years [...] to give them the # to the [facility] office without an answer. If patient of daughter Radha calls back, they need to call [facility] office @ [phone] ETING SERVICES SPECIALIST documented in this encounter Plan of Treatment Upcoming Encounters Date Type Department Care Team (Late st Contact Info) Description 06/03/2025 1:00 PM CDT Office Visit [facility] - Endocrinology - [facility] [address] [place] [address] Rachelle Butcher MD #[address] [address] documented as of this encounter Visit Diagnoses Not on filedocumented in this encounter Care Teams Booster Pump Operator Relationship Specialty Start Date End Date Ivan Sandra, [facility] [address] [place] [address] PCP - General Physician Propeller Inspector 07/28/20 Rachelle Butcher MD #[address] [address] Consulting Physician Endocrinology 11/15/20 documented as of this encounter
--- OUTSIDE RECORDS SUMMARY | 2025-03-27 08:07 | XMS_ITS | Data Portability ---
Author Organization [facility] Address [address] [place] [address] Care Team Providers Care Franchise Development Manager Name Role Phone WEI SANDRA Primary Care Provider Assessment No assessment recorded. Plan of Treatment Reminders Order Date Submit Date Provider Last Modified By Organization Details Last Modified Time Details Appointments ANY 15 2024 02:00P Milton Sandra PA-C Not available Not available Not available Lab HbA1c (hemoglob in A1c), blood 2024 025 MAEGAN In-Office Order, Internal Use Only DO Not Attach Compendium DO Not Attach Compendium, Do Not Delete/merge, [id number] 11/10/2024 16:18:21 HbA1c (hemoglob in A1c), blood 2023 024 jnanney In-Office Order, Internal Use Only DO Not Attach Compendium DO Not Attach Compendium, Do Not Delete/merge, [id number] 10/12/2024 16:30:28 HbA1c (hemoglob in A1c), blood 2023 024 jnanney In-Office Order, Internal Use Only DO Not Attach Compendium DO Not Attach Compendium, Do Not Delete/merge, [id number] 01/06/2024 12:37:47 CBC 2023 024 MAEGAN [facility], [address], [address], [place], [address], 01/07/2024 09:14:15 CMP, serum or plasma 2023 024 MAEGAN [facility], [address], [address], [place], [address], 01/07/2024 09:14:14 lipid panel, serum 2023 024 MAEGAN [facility], [address], [address], [place], [address], 01/07/2024 09:14:13 Referral None recorded. Procedures None recorded. Surgeries None recorded. Imaging None recorded. Medication Orders Namenda 10 mg tablet 2023 [facility], [address], [place], [address], 10/12/2024 15:11:48 Januvia [address] [facility], [address], [place], [address], 10/12/2024 15:11:40 glipizide 5 mg tablet 2023 024 [facility], [address], [place], [address], 10/12/2024 15:11:45 Patient TargetsNo targets recorded. Patient Instructions Encounter Date Encounter Id Patient Instructions Last Modified By Organization Details Last Modified Time 01/06/2024 [id number] When You Want to Lose Weight: Care Instructions jnanney Not available 01/06/2024 12:37:45 type 2 diabetes: care instructions jnanney Not available 01/06/2024 12:37:44 04/27/2024 [id number] A healthy lifestyle: care instructions jnanney Not available 04/27/2024 16:32:27 A healthy lifestyle: care instructions jnanney Not available 04/27/2024 16:32:27 type 2 diabetes: care instructions jnanney Not available 04/27/2024 16:32:27 10/12/2024 [id number] type 2 diabetes: care instructions jnanney Not available 10/12/2024 16:30:28 11/10/2024 [id number] A healthy lifestyle: care instructions jnanney Not available 11/10/2024 16:11:11 type 2 diabetes: care instructions jnanney Not available 11/10/2024 16:11:11 01/18/2025 [id number] A healthy lifestyle: care instructions jnanney Not available 01/18/2025 15:17:04 type 2 diabetes: care instructions jnanney Not available 01/18/2025 15:17:04 Reason for Referral None Reported. Results Created Date Observation Date Name Description Value Unit Range Abnormal Flag Note LastModifiedBy Organization Detail LastModifiedTime 01/06/2001/07/2024 LIPID PANEL cholesterol, total 176 mg/dL 100-19 9 Not Available [address], [address], 01/07/2024 09:14:13 01/06/2001/07/2024 LIPID PANEL triglyceride s 144 mg/dL 0-149 Not Available [address], [address], 01/07/2024 09:14:13 01/06/2001/07/2024 LIPID PANEL HDL cholesterol 39 mg/dL >39 below low normal Not Available [address], [address], 01/07/2024 09:14:13 01/06/2001/07/2024 LIPID PANEL VLDL cholesterol prem 26 mg/dL 5-40 Not Available [address], [address], 01/07/2024 09:14:13 01/06/2001/07/2024 LIPID PANEL LDL chol calc ([facility]) 111 mg/dL 0-99 above high normal Not Available [address], [address], 01/07/2024 09:14:13 01/06/2001/07/2024 COMP. METAB OLIC PANEL (14) glucose 289 mg/dL 70-99 above high normal Not Available [address], [address], 01/07/2024 09:14:14 01/06/20 24 01/07/2024 COMP. METAB OLIC PANEL (14) BUN 17 mg/dL 8-27 Not Available [address], [address], 01/07/2024 09:14:14 01/06/20 24 01/07/2024 COMP. METAB OLIC PANEL (14) creatinine 0.95 mg/dL 0.57-1 .00 Not Available [address], [address], 01/07/2024 09:14:14 01/06/20 24 01/07/2024 COMP. METAB OLIC PANEL (14) eGFR 62 mL/mi n/1.7 3 >59 Not Available [address], [address], 01/07/2024 09:14:14 01/06/20 24 01/07/2024 COMP. METAB OLIC PANEL (14) BUN/creatini ne ratio 18 12-28 Not Available [address], [address], 01/07/2024 09:14:14 01/06/20 24 01/07/2024 COMP. METAB OLIC PANEL (14) sodium 136 mmol/ L 134-14 4 Not Available [address], [address], 01/07/2024 09:14:14 01/06/20 24 01/07/2024 COMP. METAB OLIC PANEL (14) potassium 4.8 mmol/ L 3.5-5. 2 Not Available [address], [address], 01/07/2024 09:14:14 01/06/20 24 01/07/2024 COMP. METAB OLIC PANEL (14) chloride 101 mmol/ L 96-106 Not Available [address], [address], 01/07/2024 09:14:14 01/06/20 24 01/07/2024 COMP. METAB OLIC PANEL (14) carbon dioxide, total 21 mmol/ L 20-29 Not Available [address], [address], 01/07/2024 09:14:14 01/06/20 24 01/07/2024 COMP. METAB OLIC PANEL (14) calcium 11.6 mg/dL 8.7-10 .3 above high normal Not Available [address], [address], 01/07/2024 09:14:14 01/06/20 24 01/07/2024 COMP. METAB OLIC PANEL (14) protein, total 6.9 g/dL 6.0-8. 5 Not Available [address], [address], 01/07/2024 09:14:14 01/06/20 24 01/07/2024 COMP. METAB OLIC PANEL (14) albumin 4.3 g/dL 3.8-4. 8 Not Available [address], [address], 01/07/2024 09:14:14 01/06/20 24 01/07/2024 COMP. METAB OLIC PANEL (14) globulin, total 2.6 g/dL 1.5-4. 5 Not Available [address], [address], 01/07/2024 09:14:14 01/06/20 24 01/07/2024 COMP. METAB OLIC PANEL (14) A/G ratio 1.7 1.2-2. 2 Not Available [address], [address], 01/07/2024 09:14:14 01/06/20 24 01/07/2024 COMP. METAB OLIC PANEL (14) bilirubin, total 1.0 mg/dL 0.0-1. 2 Not Available [address], [address], 01/07/2024 09:14:14 01/06/20 24 01/07/2024 COMP. METAB OLIC PANEL (14) alkaline phosphatase 104 IU/L 44-121 Not Available [address], [address], 01/07/2024 09:14:14 01/06/20 24 01/07/2024 COMP. METAB OLIC PANEL (14) AST (SGOT) 18 IU/L 0-40 Not Available [address], [address], 01/07/2024 09:14:14 01/06/20 24 01/07/2024 COMP. METAB OLIC PANEL (14) ALT (SGPT) 21 IU/L 0-32 Not Available [address], [address], 01/07/2024 09:14:14 01/06/20 24 01/07/2024 CARDI OVASC ULAR REPOR T interpretati on Note Suppl nicole oliver is avail able. Not Available [address], [address], 01/07/2024 09:14:15 01/06/20 24 01/07/2024 CARDI OVASC ULAR REPOR T pdf . Not Available [address] [place], [address], 01/07/2024 09:14:15 01/06/20 24 01/07/2024 CBC, PLATE LET, NO DIFFE RENTI AL WBC 5.1 x10e3 /uL 3.4-10 .8 Not Available [address], [address], 01/07/2024 09:14:15 01/06/2001/07/2024 CBC, PLATE LET, NO DIFFE RENTI AL RBC 4.78 x10e6 /uL 3.77-5 .28 Not Available [address], [address], 01/07/2024 09:14:15 01/06/20 24 01/07/2024 CBC, PLATE LET, NO DIFFE RENTI AL hemoglobin 15.2 g/dL 11.1-1 5.9 Not Available [address], [address], 01/07/2024 09:14:15 01/06/2001/07/2024 CBC, PLATE LET, NO DIFFE RENTI AL hematocrit 45.1 % 34.0-4 6.6 Not Available [address], [address], 01/07/2024 09:14:15 01/06/2001/07/2024 CBC, PLATE LET, NO DIFFE RENTI AL MCV 94 fL 79-97 Not Available [facility] & [address], [address], 01/07/2024 09:14:15 01/06/2001/07/2024 CBC, PLATE LET, NO DIFFE RENTI AL MCH 31.8 pg 26.6-3 3.0 Not Available [address], [address], 01/07/2024 09:14:15 01/06/20 24 01/07/2024 CBC, PLATE LET, NO DIFFE RENTI AL MCHC 33.7 g/dL 31.5-3 5.7 Not Available [address], [address], 01/07/2024 09:14:15 01/06/20 24 01/07/2024 CBC, PLATE LET, NO DIFFE RENTI AL RDW 12.7 % 11.7-1 5.4 Not Available [address], [address], 01/07/2024 09:14:15 01/06/20 24 01/07/2024 CBC, PLATE LET, NO DIFFE RENTI AL platelets 178 x10e3 /uL 150-45 0 Not Available [address], [address], 01/07/2024 09:14:15 01/06/20 24 01/06/2024 HbA1c (hemo globi n A1c), blood HbA1c 8.6 Not Available In-Office Order Internal Use Only DO Not Attach Compendium DO Not Attach Compendium, Do Not Delete/merge, [id number] 01/06/2024 09:19:45 04/29/20 24 04/29/2024 Gluco se [Mass /volu me] in Capil ramesh blood by Gluco meter glucose [mass/volume ] in capillary blood by glucometer 170 text: 70 - 99 mg/dL high GLUCO SE POC 170 (H) 70 - 99 MG/DL 04/29 1:15 PM CDT [facility] Not Available Not Available 01/12/2025 03:39:23 04/29/20 24 04/29/2024 Gluco se [Mass /volu me] in Capil ramesh blood by Gluco meter interpretati on and review of laboratory results Abnorm al Not Available Not Available 03:39:23 09/04/07/01/2024 Gluco se [Mass /volu me] in Capil ramesh blood by Gluco meter glucose [mass/volume ] in capillary blood by glucometer 123 text: 70 - 99 mg/dL high GLUCO SE POC 123 (H) 70 - 99 MG/DL 07/01 1:50 PM CDT [facility] Not Available Not Available 01/12/2025 03:39:00 07/01/2007/01/2024 Gluco se [Mass /volu me] in Capil ramesh blood by Gluco meter interpretati on and review of laboratory results Abnorm al Not Available Not Available 03:39:00 10/12/2010/13/2024 LIPID PANEL cholesterol, total 245 mg/dL 100-19 9 above high normal Not Available [address], [address], 10/13/2024 10:16:41 10/12/2010/13/2024 LIPID PANEL triglyceride s 258 mg/dL 0-149 above high normal Not Available [address], [address], 10/13/2024 10:16:41 10/12/20 24 10/13/2024 LIPID PANEL HDL cholesterol 37 mg/dL >39 below low normal Not Available [address], [address], 10/13/2024 10:16:41 10/12/20 24 10/13/2024 LIPID PANEL VLDL cholesterol prem 48 mg/dL 5-40 above high normal Not Available [address], [address], 10/13/2024 10:16:41 10/12/20 24 10/13/2024 LIPID PANEL LDL chol calc (nih) 160 mg/dL 0-99 above high normal Not Available [address], [address], 10/13/2024 10:16:41 10/12/20 24 10/13/2024 COMP. METAB OLIC PANEL (14) glucose 217 mg/dL 70-99 above high normal Not Available [address], [address], 10/13/2024 10:16:42 10/12/20 24 10/13/2024 COMP. METAB OLIC PANEL (14) BUN 20 mg/dL 8-27 Not Available [address], [address], 10/13/2024 10:16:42 10/12/20 24 10/13/2024 COMP. METAB OLIC PANEL (14) creatinine 0.91 mg/dL 0.57-1 .00 Not Available [address], [address], 10/13/2024 10:16:42 10/12/20 24 10/13/2024 COMP. METAB OLIC PANEL (14) eGFR 65 mL/mi n/1.7 3 >59 Not Available [address], [address], 10/13/2024 10:16:42 10/12/20 24 10/13/2024 COMP. METAB OLIC PANEL (14) BUN/creatini ne ratio 22 12-28 Not Available [address], [address], 10/13/2024 10:16:42 10/12/20 24 10/13/2024 COMP. METAB OLIC PANEL (14) sodium 138 mmol/ L 134-14 4 Not Available [address], [address], 10/13/2024 10:16:42 10/12/20 24 10/13/2024 COMP. METAB OLIC PANEL (14) potassium 4.4 mmol/ L 3.5-5. 2 Not Available [address], [address], 10/13/2024 10:16:42 10/12/20 24 10/13/2024 COMP. METAB OLIC PANEL (14) chloride 105 mmol/ L 96-106 Not Available [address], [address], 10/13/2024 10:16:42 10/12/20 24 10/13/2024 COMP. METAB OLIC PANEL (14) carbon dioxide, total 22 mmol/ L 20-29 Not Available [address], [address], 10/13/2024 10:16:42 10/12/20 24 10/13/2024 COMP. METAB OLIC PANEL (14) calcium 11.6 mg/dL 8.7-10 .3 above high normal Not Available [address], [address], 10/13/2024 10:16:42 10/12/20 24 10/13/2024 COMP. METAB OLIC PANEL (14) protein, total 6.7 g/dL 6.0-8. 5 Not Available [address], [address], 10/13/2024 10:16:42 10/12/20 24 10/13/2024 COMP. METAB OLIC PANEL (14) albumin 4.4 g/dL 3.8-4. 8 Not Available [address], [address], 10/13/2024 10:16:42 10/12/20 24 10/13/2024 COMP. METAB OLIC PANEL (14) globulin, total 2.3 g/dL 1.5-4. 5 Not Available [address], [address], 10/13/2024 10:16:42 10/12/20 24 10/13/2024 COMP. METAB OLIC PANEL (14) bilirubin, total 0.7 mg/dL 0.0-1. 2 Not Available [address], [address], 10/13/2024 10:16:42 10/12/20 24 10/13/2024 COMP. METAB OLIC PANEL (14) alkaline phosphatase 103 IU/L 44-121 Not Available [address], [address], 10/13/2024 10:16:42 10/12/20 24 10/13/2024 COMP. METAB OLIC PANEL (14) AST (SGOT) 13 IU/L 0-40 Not Available [address], [address], 10/13/2024 10:16:42 10/12/20 24 10/13/2024 COMP. METAB OLIC PANEL (14) ALT (SGPT) 16 IU/L 0-32 Not Available [address], [address], 10/13/2024 10:16:42 10/12/20 24 10/13/2024 CARDI OVASC ULAR REPOR T interpretati on Note Suppl ement al repor t is avail able. Not Available [address], [address], 10/13/2024 10:16:44 10/12/20 24 10/13/2024 CARDI OVASC ULAR REPOR T pdf . Not Available [address], [address], 10/13/2024 10:16:44 10/12/20 24 10/13/2024 CBC, PLATE LET, NO DIFFE RENTI AL WBC 5.4 x10e3 /uL 3.4-10 .8 Not Available [facility] & [address], [address], 10/13/2024 10:16:45 10/12/20 24 10/13/2024 CBC, PLATE LET, NO DIFFE RENTI AL RBC 4.49 x10e6 /uL 3.77-5 .28 Not Available [address], [address], 10/13/2024 10:16:45 10/12/20 24 10/13/2024 CBC, PLATE LET, NO DIFFE RENTI AL hemoglobin 14.4 g/dL 11.1-1 5.9 Not Available [address], [address], 10/13/2024 10:16:45 10/12/20 24 10/13/2024 CBC, PLATE LET, NO DIFFE RENTI AL hematocrit 43.3 % 34.0-4 6.6 Not Available [address], [address], 10/13/2024 10:16:45 10/12/20 24 10/13/2024 CBC, PLATE LET, NO DIFFE RENTI AL MCV 96 fL 79-97 Not Available [facility] & [address], [address], 10/13/2024 10:16:45 10/12/20 24 10/13/2024 CBC, PLATE LET, NO DIFFE RENTI AL MCH 32.1 pg 26.6-3 3.0 Not Available [address], [address], 10/13/2024 10:16:45 10/12/20 24 10/13/2024 CBC, PLATE LET, NO DIFFE RENTI AL MCHC 33.3 g/dL 31.5-3 5.7 Not Available [facility] [address] [place] [address], [address], 10/13/2024 10:16:45 10/12/20 24 10/13/2024 CBC, PLATE LET, NO DIFFE RENTI AL RDW 12.1 % 11.7-1 5.4 Not Available [address], [address], 10/13/2024 10:16:45 10/12/20 24 10/13/2024 CBC, PLATE LET, NO DIFFE RENTI AL platelets 193 x10e3 /uL 150-45 0 Not Available [address], [address], 10/13/2024 10:16:45 10/12/20 24 10/12/2024 HbA1c (hemo globi n A1c), blood HbA1c 8.9 Not Available In-Office Order Internal Use Only DO Not Attach Compendium DO Not Attach Compendium, Do Not Delete/merge, [id number] 10/12/2024 14:52:16 11/10/19 25 11/10/2024 HbA1c (hemo globi n A1c), blood HbA1c 7.7 Not Available In-Office Order Internal Use Only DO Not Attach Compendium DO Not Attach Compendium, Do Not Delete/merge, [id number] 11/10/2024 16:11:25 12/03/19 25 12/03/2024 Hemog lobin [...] Abnorm al Not Available Not Available 12:51:35 01/06/20 25 01/05/2025 XR, chest [facility] [address] [place], [address], 01/05/2025 09:01:36 Result Notes None recorded. Problems Name Problem SNOMED Code Status Onset Date Resolution Date Notes Provider Name and Address Organization Details Recorded Time Type 2 diabetes mellitus 65148853 Completed 201808/17/2021 Wei Sandra PA-C Attn: Keke ferguson,[address] [place], [address], [place] [facility] 15:13:57 Multiple complication s due to type 2 diabetes mellitus Active 2020 Wei Sandra PA-C Attn: Accounttiffany g,[address] [place], [address], [place] [facility] 15:14:11 Unsteady when walking 60214910 Active 2020 Wei Sandra PA-C Attn: Accounttiffany g,[address] [place], [address], [place] [facility] 15:23:46 Hyperlipidem ia 12483995 Active SORAYA [place], [place] [facility] 14:09:02 Knee pain Active SORAY[place] [facility] 14:09:02 Problem Notes None recorded. Procedures Surgical History Date Name Laterality Status Provider Name and Address Organization Details Recorded Time 7 Joint Injection completed Liv Bill MD Attn: Accounting,[address] [place], [address], [place] [facility] 07/19/2017 20:03:51 Imaging Results None recorded. Procedure Notes None recorded. Medical Equipment None Reported. Allergies Allergen ID Allergen Name Allergen Category Reaction Reaction Severity Criticality Documentation Date Start Date Code Code System Note Provider Name and Address Organization Details Recorded Time 355473 No known allergy (situatio n) Not available Not available Not available Not available 08/17/2021 46233 6003 SNOMED SORAYA Parra, [place] - [facility] 14:09:01 No known drug allergies Medications Name Sig Start Date Stop Date Status Note LastModified by Organization Details LastModified Time metformin 500 mg tablet 08/19 completed Not Available Not Available Not Available atorvasta tin 10 mg tablet Take 1 tablet(s ) every day by oral route for 90 days. 2024 active Not Available Not Available Not Avai lable azithromy mekhi 250 mg tablet TAKE 1 [...] I ordered this due to billing reasons. hussein,cm a Not Available Not Available Not Available [...] No t Available glipizide 5 mg tablet TAKE 1 TABLET TWICE A DAY BY ORAL ROUTE FOR 90 DAYS. 2024 active Not Available Not Available Not Avai lable Namenda 10 mg tablet Take 1 tablet(s ) twice a day by oral route for 30 days. 2024 active Not Available Not Available Not Avai lable omega-3 acid ethyl esters 1 gram capsule 08/19 completed Not Available Not Available Not Available Acidophil us active Not Available Not Available Not Available Januvia 100 mg tablet TAKE ONE TABLET BY MOUTH EVERY DAY 2024 active Not Available Not Available Not Avai lable Steglatro 5 mg tablet Take 1 tablet [...] Updated DateTime 5 157.48 cm 30.6 kg/m2 06220.0 3 g 106 /min 98 % 98 % 127 mm[Hg] 76 mm[Hg] Nevaeh Garcia MA [facility] 5 15:51:29 Date Recorded Body height Body mass index (BMI) Body weight Heart rate Oxygen saturation Oxygen saturation in Arterial blood by Pulse oximetry Systolic blood pressure Diastolic blood pressure Provider Name and Address Organization Details Last Updated DateTime 4 157.48 cm 31.9 kg/m2 17280.1 7 g 90 /min 96 % 96 % 123 mm[Hg] 85 mm[Hg] Nevaeh Garcia MA MD - [facility] 4 12:24:00 Date Recorded Body height Body mass index (BMI) Body weight Oxygen saturation Oxygen saturation in Arterial blood by Pulse oximetry Heart rate Systolic blood pressure Diastolic blood pressure Provider Name and Address Organization Details Last Updated DateTime 5 157.48 cm 28.9 kg/m2 97384.5 9 g 95 % 95 % 105 /min 118 mm[Hg] 76 mm[Hg] Prema Louis MA MD - [facility] 5 15:05:53 Date Recorded Body height Body mass index (BMI) Body weight Oxygen saturation Oxygen saturation in Arterial blood by Pulse oximetry Heart rate Systolic blood pressure Diastolic blood pressure Provider Name and Address Organization Details Last Updated DateTime 4 157.48 cm 30.8 kg/m2 52412.6 2 g 96 % 96 % 106 /min 126 mm[Hg] 82 mm[Hg] Nevaeh Garcia MA [facility] 4 16:19:19 Date Recorded Body height Body mass index (BMI) Body weight Oxygen saturation Oxygen saturation in Arterial blood by Pulse oximetry Heart rate Systolic blood pressure Diastolic blood pressure Provider Name and Address Organization Details Last Updated DateTime 4 157.48 cm 30.7 kg/m2 51699.5 2 g 95 % 95 % 93 /min 135 mm[Hg] 85 mm[Hg] Nevaeh Garcia MA [facility] 4 14:54:36 Social History Question Answer Notes LastModified by Organizat ion Details LastModified Time Tobacco Smoking Status Former Smoker Levi Haney MA [facility] 12/23/2014 15:36:19 What Is Your Level Of Caffeine Consumption? [...] For COVID-19? No Information not available 08/17/2021 What Type Of Diet Are You Following? REGULAR Information not available 08/17/2021 What Was The Date Of Your Most Recent Tobacco Screening? 01/18/2025 Information not available 01/18/2025 What Is Your Relationship Status? Information not available 08/17/2021 Do You Have Smoke And Carbon Monoxide Detectors In Your Home? Yes Information not available 08/17/2021 Are You Passively Exposed To Smoke? No Information no t available 08/17/2021 How Much Tobacco Do You Smoke? No [email or web address] Information not available 07/16/2017 Has Tobacco Cessation Counseling Been Provided? No Information not available 08/17/2021 On What Date Was Tobacco Cessation Counseling Provided? 01/18/2025 Information not available 01/18/2025 Sex: Unknown Functional Status Question Answer Note LastModified by Organizat ion Details LastModified Time Do you use any illicit or recreational drugs? No Information not available 08/17/2021 Do you or have you ever used any other forms of tobacco or nicotine? No Information not available 08/17/2021 What is your level of alcohol consumption? None Information not available 08/17/2021 Are you currently employed? No Information not available 08/17/2021 Are you able to care for yourself? Yes Information not available 08/17/2021 Mental Status Question Answer Note LastModified by Organization D etails LastModified Time Do you feel stressed (tense, restless, nervous, or anxious, or unable to sleep at night)? [id number] Information not available 08/17/2021 Family History Nothing Reported. Medical History Condition Response Coronary Artery Disease N Other N Atrial Fibrillation N High Blood Pressure N Kidney or Bladder Problems N Thyroid Problems N GI Problems N Depression N COPD N Blood Clots N Skin Problems N Eating Disorder N Anemia N Heart Attack ([place]) N Anxiety Disorder N Diabetes Y Muscle, Joint, or Bone Problems N Seizures/Epilepsy [...] virus, quadrivalent, preservative 6 completed Not Available formerly [facility] 11/14/2019 02:44:18 Tdap 6 completed Not Available formerly [facility] 11/14/2019 02:30:18 Influenza, high-dose, trivalent, PF 7 completed Not Available formerly [facility] 11/14/2019 02:34:21 Influenza, split virus, quadrivalent, preservative 9 completed Not Available formerly [facility] 11/14/2019 02:38:42 COVID-19, mRNA, LNP-S, PF, 50 mcg/0.5 mL 4 completed SORAYA [place]ra, [place] - [facility] 10/12/2024 15:25:08 Past Encounters Encounter ID Performer Location Encounter Start Date Encounter Closed Date Diagnosis/Indication Diagnosis SNOMED-CT Code Diagnosis ICD10 Code Diagnosis Note [id number] MD [facility] [address] [place] [address] 12/23/2014 15:03:27 12/24/2014 15:43:55 Hyperlipidemia 87571920 Doing well with medication s- refilled and ordered blood work. Will need mammogram at next visit. Follow up 6 months [id number] MD [facility]) [address] [place] [address] 05/30/2015 16:34:15 05/31/2015 13:25:59 Knee pain 99207083 recent x-ray shows arthritis. advised on otc pain medication and considerat ion of an injection Hyperlipidemia 33261077 Doing well with medication s- refilled and ordered blood work. Will need mammogram at next visit. Follow up 6 months [id number] MD [facility]) [address] [place] [address] 07/24/2016 08:31:39 07/24/2016 11:16:11 Hyperlipidemia 19107026 E78.5 Doing well with medication s- refilled and ordered blood work. Active or passive immunization 481600871 Z23 [id number] Liv Bill MD [facility] ([facility]) [address] [place] [address] 07/16/2017 09:13:02 07/17/2017 12:03:40 Hyperlipidemia 95636175 E78.5 Doing well with medication s- refilled and ordered blood work. Knee pain 31444319 M25.5 69 recent x-ray shows arthritis. advised on otc pain medication and injection injected today Adult heal th examination 881042555 Z00.00 Due for mammogram and discussed advanced directives Active or passive immunization 250368685 Z23 reviewed and updated Liv Bill MD [facility] [address] [facility] [address] [place] [address] 09/03/2017 14:19:35 09/04/2017 13:03:13 Hyperglycemia 69295936 R73.9 Discussed dx and tx options and blood work. Encouraged healthy eating and will follow up in one month. [id number] Liv Bill MD [place] [address] [address] [facility] [address] [place] [address] 01/21/2018 09:32:50 01/28/2018 12:25:37 Adult health examination 611034498 Z00.00 mammogram update reviewed diet andneeds colonoscop y Hyperlipidemia 98239639 E78.5 Doing well with medication s- refilled and ordered blood work. Hyperglycemia 17169972 R 73.9 Discussed dx and tx options and blood work. Encouraged healthy eating and will follow up with blood work in 3 months [id number] Wei Sandra PA-C [facility] [address] [place] [address] 08/19/2019 15:37:51 08/20/2019 15:24:32 Type 2 diabetes mellitus 99845779 E11.9 Knee pain 43026986 M25.5 62 Hyperlipidemia 59872902 E78.2 Screening for malignant neoplasm of colon 250825240 Z12.11 Administra tion of influenza vaccine 65640755 Z23 [id number] Wei Sandra PA-C [facility] [address] [place] [address] 09/04/2019 10:52:30 09/04/2019 14:48:47 Type 2 diabetes mellitus 72812427 E11.9 Hyperlipidemia 24859437 E78.2 [id number] Wei Sandra PA-C [facility] [address] [place] [address] 12/22/2019 10:49:52 12/22/2019 11:43:40 Type 2 diabetes mellitus 08386562 E11.9 Knee pain 86369526 M25.5 62 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 1967076441 00593 E13.21 [id number] Wei Sandra PA-C [facility] [address] [place] [address] 07/18/2020 09:46:15 07/18/2020 16:14:07 Type 2 diabetes mellitus 50414537 E11.9 [id number] Wei Sandra PA-C [facility] [address] [place] [address] 08/17/2021 13:50:30 08/17/2021 15:29:29 Primary degenerative dementia of the Alzheimer type, senile onset 089922316 G30.1 Multiple complications due to type 2 diabetes mellitus 154312214 E11.10 Type 2 tarun betes mellitus 17730437 E11.9 Unsteady when walking 22 432937 R26.89 [id number] Wei Sandra PA-C [facility] [address] [place] [address] 10/23/2021 14:49:51 10/24/2021 10:34:52 Hyperlipidemia 95181257 E78.2 Multiple complications due to type 2 diabetes mellitus 508916170 E11.10 Obesity 945336457 E66.3 [id number] Wei Sandra PA-C [facility] [address] [place] [address] 11/08/2021 11:29:40 11/14/2021 10:42:03 Multiple complications due to type 2 diabetes mellitus 440521147 E11.10 Hyperlipidemia 36167504 E78.2 Type 2 tarun betes mellitus 64726718 E11.9 Primary de generative dementia of the Alzheimer type, senile onset 047405310 G30.1 [id number] Wei Sandra PA-C [facility] [address] [place] [address] 01/16/2023 14:32:35 01/21/2023 13:59:31 Type 2 diabetes mellitus without complication 691153503 E11.9 Primary de generative dementia of the Alzheimer type, senile onset 753177851 G30.1 Type 2 tarun betes mellitus 66128393 E11.9 Overweight 984745955 E66 .3 [id number] Wei Sandra PA-C [facility] [address] [place] [address] 01/25/2023 11:23:43 01/27/2023 12:33:16 Type 2 diabetes mellitus without complication 590509157 E11.9 Overweight 698795686 E66 .3 [id number] Wei Sandra PA-C [facility] [address] [place] [address] 01/06/2024 11:58:43 01/10/2024 15:42:56 Type 2 diabetes mellitus without complication 405519795 E11.9 Overweight 093028651 E66 .3 [id number] Mike Albarran MD [facility] [address] [place] [address] 04/27/2024 16:10:12 05/01/2024 14:47:39 Bilateral cataracts 31786590 H25.012 Type 2 tarun betes mellitus without complication 395081784 E11.9 Overweight 400464590 E66 .3 [id number] Mike Albarran MD [facility] [address] [place] [address] 10/12/2024 14:43:22 10/15/2024 09:40:57 Type 2 diabetes mellitus without complication 949610987 E11.9 Administra tion of SARS-CoV-2 mRNA vaccine 7831386406 Z23 Primary de generative dementia of the Alzheimer type, senile onset 026972529 G30.1 Type 2 tarun betes mellitus 48033581 E11.9 [id number] Mike Albarran MD [facility] [address] [place] [address] 11/10/2024 15:40:33 11/13/2024 09:46:37 Type 2 diabetes mellitus without complication 489610843 E11.9 Overweight 974991306 E66 .3 [id number] Mike Albarran MD [facility] [address] [place] [address] 01/18/2025 14:57:10 01/22/2025 15:21:25 Acute bronchitis with bronchospasm 45474384 J20.8 Type 2 tarun betes mellitus without complication 433772125 E11.9 Postviral cough 57300138 4 B94.8 Overweight 524875665 E66 .3 Health Concerns Section Related Observation LastModified by Organization Detai ls LastModified Time None Recorded Concern Status LastModified by Organization Details LastModified Time None Recorded Advance Directives Directive None Recorded Payers Encounter Date Sequence Insurance Name Policy Number Policy Gregorio Covered Member ID Gregorio Member ID Guarantor Name 04/27/2024 1 [facility] ON OR AFTER 10/28/2020 - DUAL ELIGIBLE (MEDICARE REPLACEMENT/A DVANTAGE - HMO) [employer] P Link [id number] 1 [id number] [employer] Link 10/12/2024 1 [facility] ON OR AFTER 10/28/2020 - DUAL ELIGIBLE (MEDICARE REPLACEMENT/A DVANTAGE - HMO) [employer] P Link [id number] 1 [id number] [employer] Link 11/10/2024 1 [facility] ON OR AFTER 10/28/2020 - DUAL ELIGIBLE (MEDICARE REPLACEMENT/A DVANTAGE - HMO) [employer] P Link [id number] 1 [id number] [employer] Link 01/18/2025 1 [facility] ON OR AFTER 10/28/2020 - DUAL ELIGIBLE (MEDICARE REPLACEMENT/A DVANTAGE - HMO) [employer] P Link [id number] [employer] Link Notes Date Note Type Note Provider Name and Address Organization Details Recorded Time 01/06/2024 text/html hx of diabetes...need s labs.. Wei Sandra PA-C Attn: Accounting,[address], [place], [address], [facility] 01/06/2024 12:38:27 04/27/2024 text/html cataract surgery release.. Wei Sandra PA-C Attn: Accounting,[address] [facility], [place], [address], [facility] 04/27/2024 16:34:11 10/12/2024 text/html well check...things are good...no complaints...di abetes does not check the level...a1c going up...reports diet not great...also has dementia... SORAYA Parra, [facility] 10/12/2024 16:21:04 11/10/2024 text/html check up on diabetes doesnt check her numbers but takes her meds... SORAYA Parra, [facility] 11/10/2024 16:19:20 01/18/2025 text/html ER follow up vs bronchitis...tr eated and released..feeli ng much better.. Wei Sandra PA-C Attn: Accounting,[address] [facility], [place], [address], [facility] 01/18/2025 15:17:43 OBGyn Episode No OBEpisode recorded.
--- OUTSIDE RECORDS SUMMARY | 2025-03-27 08:07 | XMS_ITS | Clinical Summary ---
Author Organization [facility] Address [address] [place] [address] Phone Care Team Providers Care Icu Rn Name Role Phone Ivan Sandra Primary Care Provider [phone] Rachelle Butcher MD Unavailable Allergies No known [...] without long-term current use of insulin 12/06/2024 Immunizations Immunization Administration Dates Next Due Influenza [...] Comments Blood Pressure 112/84 12/03/2024 1:01 PM AUTO TECH Pulse 92 12/03/2024 1:01 PM AUTO TECH Temperature 36.3 C (97.3 F) 12/03/2024 1:01 PM AUTO TECH Respiratory Rate 18 12/03/2024 1:01 PM AUTO TECH Oxygen Saturation 98% 12/03/2024 1:01 PM AUTO TECH Inhaled Oxygen Concentration - - Weight 75.3 kg (166 lb) 12/03/2024 1:01 PM AUTO TECH Height 163.8 cm (5' 4.5) 12/03/2024 1:01 PM AUTO TECH Body Mass Index 28.05 12/03/2024 1:01 PM AUTO TECH Plan of Treatment Upcoming Encounters Date Type Department Care Team (Late st Contact Info) Description 06/03/2025 1:00 PM CDT Office Visit [facility] - Endocr[facility]ology - [place] [address] [place] [address] Rachelle Butcher MD [address] [address] Health Maintenance Due Date Last Done Comments [...] POCT GLYCOSYLATED HEMOGLOBIN Routine 12/03/2024 1:08 PM AUTO TECH Type 2 diabetes mellitus with diabetic polyneuropathy, without long-term current use of insulin (HCC) from Last 3 Months or Most Recently Relevant to Health Maintenance Results * (ABNORMAL) POCT GLYCOSYLATED HEMOGLOBIN (12/03/2024 1:08 PM AUTO TECH) HGB-A1C 7.0(A) 4 - 6 % Blood 12/03/2024 1:08 PM AUTO TECH Result [facility] Rachelle Butcher MD POINT OF CARE TESTING (MANUAL) F inal Result from Last 3 Months or Most Recently Relevant to Health Maintenance Insurance MEDICARE C [employer] Care Teams Icu Rn Relationship Specialty Start Date End Date Ivan Sandra, [address] [place] [address] PCP - General Physician Used Car Sales Supervisor 07/28/20 Rachelle Butcher MD [address] [phone] Consulting Physician Endocrinology 11/15/20
--- NOTE | 2025-03-27 08:40 | ED_ITS ---
HPI - Fall General Chief Complaint: Fall Stated Complaint: fall Time Seen by Provider: 03/27/25 08:07 Source: patient and EMS Mode of arrival: EMS Limitations: no limitations History of Present Illness HPI Narrative: this is a 79-year-old female with some history of diabetes presents via EMS after she had a witnessed fall , after she tripped on a sidewalk and had a ground level fall. and was evaluated at the scene and was complaining of any injuries but police the request suggested the EMS bring her to hospital for further evaluation. Patient denies any pain has a good range of motion in all extremities no head injury no loss of consciousness no headache no blurry vision no bruising no chest pain or shortness of breath. Onset (ago): hour(s) Fall from: standing Fall witnessed: yes, by bystander Place fall occurred: street Loss of consciousness: none Prolonged down time: no Symptoms prior to fall: none Context: tripped/slipped Severity: mild Related Data Home Medications ?Medication ?Instructions ?Recorded ?Confirmed ?Last Taken ?Type atorvastatin 10 mg tablet 10 mg PO QPM 01/04/25 01/04/25 Unknown History glipizide 5 mg tablet 5 mg PO DAILY 01/04/25 01/04/25 Unknown History memantine 10 mg tablet 10 mg PO BID 01/04/25 01/04/25 Unknown History metformin 1,000 mg tablet 1,000 mg PO BID 01/04/25 01/04/25 Unknown History sitagliptin phosphate 100 mg 100 mg PO DAILY 01/04/25 01/04/25 Unknown History tablet (Januvia) Allergies Allergy/AdvReac Type Severity Reaction Status Date / Time No Known Allergies Allergy Verified 03/27/25 08:15 Review of Systems Review of Systems: All systems reviewed & are unremarkable except as noted in HPI and below PMFSH Past Medical History Medical History Diabetes mellitus Exam Const: General: healthy appearing, no acute distress and alert Nutritional Appearance: well nourished and obese Orientation/consciousness: patient oriented x3 Limitations: no limitations HENMT: Head: normal to inspection Ears: external ears normal Face/Nose/Sinus: Normal external nose present Face and sinus: normal facial exam Eyes: Conjunctivae: conjunctivae normal Pupils: Equal, round and reactive pupils present EOM: EOMs intact bilaterally Neck: Neck: normal visual inspection, no lymphadenopathy and no meningeal signs Chest: Chest palpation & inspection: normal inspection of the chest Resp: Effort & Inspection: normal respiratory effort Auscultation: clear to auscultation bilaterally Cardio: Rate: regular rate Rhythm: regular rhythm GI: GI Palp: Yes Soft to palpation Auscultation: normal bowel sounds : General: Yes bladder normal to palpation Urinary Catheter: Urinary Catheter: patent and draining Back/Spine/Pelvis: Back: no CVA tenderness Skin: General skin exam: normal color Rashes: no rashes Wounds: no wounds Neuro: General: patient oriented x3, moves all extremities, no meningeal signs and no focal motor deficits Cranial nerves: Yes Nystagmus not present Speech: normal speech Extrem: General: normal to inspection, no clubbing, cyanosis or edema and no pedal edema Psych: Mental Status: mental status grossly normal Course Course Emergency Course: after careful examination of patient no pain elicited neurological exam was within normal limits, unsure of any head injury the CT scan performed and shows no acute intracranial abnormalities. Vital Signs Vital signs: Vital Signs Temperature 36.1 C L 03/27/25 08:04 Pulse Rate 83 03/27/25 08:04 Respiratory Rate 16 03/27/25 08:04 Blood Pressure 110/66 03/27/25 08:04 Pulse Oximetry 100 03/27/25 08:04 Oxygen Delivery Room Air 03/27/25 08:04 Temperature 36.1 C L 03/27/25 08:04 Pulse Rate 83 03/27/25 08:04 Respiratory Rate 16 03/27/25 08:04 Blood Pressure 110/66 03/27/25 08:04 Pulse Oximetry 100 03/27/25 08:04 Oxygen Delivery Room Air 03/27/25 08:04 Critical Care Time Critical Care Time Critical Care Time: No Discharge Plan Discharge Clinical Impression: Fall Qualifiers: Encounter type: initial encounter Qualified Code(s): W19.XXXA - Unspecified fall, initial encounter Patient Disposition: Home Condition: Stable Instructions: Antibiotic Form, Fall Prevention for Older Adults (ED) Additional Instructions: advise follow-up with primary care physician within at [facility] for further evaluation and treatment. Patient Language: [place] Islander Prescriptions: No Action atorvastatin 10 mg tablet 10 mg PO QPM glipizide 5 mg tablet 5 mg PO DAILY metformin 1,000 mg tablet 1,000 mg PO BID memantine 10 mg tablet 10 mg PO BID Januvia 100 mg tablet 100 mg PO DAILY azithromycin [Zithromax Z-Arjun] 250 mg tablet See Rx Instructions .ROUTE .COMPLEX Qty: 6 0RF Rx Instructions: For 250 mg dose pack: take 500 mg today (day 1), then 250 mg for 4 days (days 2-5) [facility] Max Strength Cough 15 mg/5 mL syrup 15 mg PO Q8H PRN (Reason: cough) Qty: 118 0RF albuterol sulfate [Ventolin HFA] 90 mcg/actuation HFA aerosol inhaler 2 puff inhalation Q4H PRN (Reason: shortness of breath or wheezing) Qty: 8.5 0RF Follow-up/Referrals: Jocy,BARB Osullivan [Primary Care Provider] -
--- OUTSIDE RECORDS SUMMARY | 2025-03-27 08:47 | XMS_ITS | Clinical Summary ---
Author Organization [facility] Address [address] [place] [address] Phone Care Team Providers Care Speech Lang Path Therapist Name Role Phone Ivan Sandra Primary Care Provider [phone] Rachelle Butcher MD Unavailable Allergies No known [...] Comments Blood Pressure 112/84 12/03/2024 1:01 PM GUN WELDER Pulse 92 12/03/2024 1:01 PM GUN WELDER Temperature 36.3 C (97.3 F) 12/03/2024 1:01 PM GUN WELDER Respiratory Rate 18 12/03/2024 1:01 PM GUN WELDER Oxygen Saturation 98% 12/03/2024 1:01 PM GUN WELDER Inhaled Oxygen Concentration - - Weight 75.3 kg (166 lb) 12/03/2024 1:01 PM GUN WELDER Height 163.8 cm (5' 4.5) 12/03/2024 1:01 PM GUN WELDER Body Mass Index 28.05 12/03/2024 1:01 PM GUN WELDER Plan of Treatment Upcoming Encounters Date Type Department Care Team (Late st Contact Info) Description 06/03/2025 1:00 PM CDT Office Visit [facility] - Endocrinology - [place] [address] [place] [address] Rachelle Butcher MD [address] [address] Health Maintenance Due Date Last Done Comments [...] POCT GLYCOSYLATED HEMOGLOBIN Routine 12/03/2024 1:08 PM GUN WELDER Type 2 diabetes mellitus with diabetic polyneuropathy, without long-term current use of insulin (HCC) from Last 3 Months or Most Recently Relevant to Health Maintenance Results * (ABNORMAL) POCT GLYCOSYLATED HEMOGLOBIN (12/03/2024 1:08 PM GUN WELDER) HGB-A1C 7.0(A) 4 - 6 % Blood 12/03/2024 1:08 PM GUN WELDER Result [facility] Rachelle Butcher MD POINT OF CARE TESTING (MANUAL) F inal Result from Last 3 Months or Most Recently Relevant to Health Maintenance Insurance MEDICARE C [employer] Care Teams Speech Lang Path Therapist Relationship Specialty Start Date End Date Ivan Sandra, [address] [place] [address] PCP - General Physician Bsa Officer 07/28/20 Rachelle Butcher MD [address] [phone] Consulting Physician Endocrinology 11/15/20
--- OUTSIDE RECORDS SUMMARY | 2025-03-27 08:47 | XMS_ITS | Encounter Summary ---
Author Organization [facility] Address [address] [place] [address] Phone Care Team Providers Care Travelers' Aid Worker Name Role Phone Ivan Sandra PAC Primary Care Provider [phone] Rachelle Butcher MD Unavailable Encounter Details Date Type Department Care Team (Late st Contact Info) Description 12/21/2024 Telephone [facility] [address] [place] [address] Ivan Sandra, PAC [address] [place] [address] Social History Tobacco Use Types Packs/Day Years [...] to give them the # to the [place] [facility] office without an answer. If patient of daughter Radha calls back, they need to call [facility] @ [phone] TY AND HEALTH CONSULTANT documented in this encounter Plan of Treatment Upcoming Encounters Date Type Department Care Team (Late st Contact Info) Description 06/03/2025 1:00 PM CDT Office Visit [facility] - [facility] - [place] [address] [place] [address] Rachelle Butcher MD [address] [address] documented as of this encounter Visit Diagnoses Not on filedocumented in this encounter Care Teams Travelers' Aid Worker Relationship Specialty Start Date End Date Ivan Sandra, [facility] [address] [place] [address] PCP - General Physician Industrial Plant Custodian 07/28/20 Rachelle Butcher MD [address] [address] Consulting Physician Endocrinology 11/15/20 documented as of this encounter
== END 2025-03-27 09:10 | disposition home or self-care (01) ==
PROVIDERS: Emergency Provider Emergency Medicine; PCP Physician Assistant
DX: Z04.3 Encounter for examination and observation following other accident (principal); E11.9 Type 2 diabetes mellitus without complications; W01.0XXA Fall on same level from slipping, tripping and stumbling without subsequent striking against object, initial encounter
CPT/HCPCS: 70450; 99284